=== PATIENT | female | born 1950 | race Caucasian/White ===

== ENCOUNTER 2020-06-19 08:44 | Outpatient (REF) | payer MEDICARE, SELFPAY ==
--- NOTE | 2020-06-19 09:54 | XR_ITS ---
EXAMINATION: XR CHEST CLINICAL INFORMATION: Asthma. COPD. COMPARISON: February 14, 2020 TECHNIQUE: 2 views of the chest were obtained. FINDINGS: There is no evidence of significant acute parenchyma disease, pneumothorax, or pleural effusion. Heart normal size. No evidence of pulmonary edema. Discoid atelectasis is noted about the left base. Multilevel degenerative disc disease is seen within the lower thoracic and proximal lumbar spine. XR/XR chest 2V IMPRESSION: No significant acute parenchymal disease.
== END 2020-06-19 08:45 | disposition home or self-care (01) ==
LOC: HO.XRAY 08:44
PROVIDERS: PCP Internal Medicine; Visit Provider Hospitalist
DX: J44.9 Chronic obstructive pulmonary disease, unspecified (principal)
CPT/HCPCS: 71046

== ENCOUNTER 2020-07-21 11:59 | Outpatient (REF) | payer MEDICARE, SELFPAY ==
--- NOTE | 2020-07-21 12:04 | MM_ITS ---
EXAMINATION: MM SCREENING DIGITAL BREAST TOMOSYNTHESIS, BILATERAL CLINICAL INFORMATION: Screening. Asymptomatic. The lifetime risk of breast cancer based on the Tyrer-Cuzick Model is 5%. COMPARISON: Mammography: 02/11/2019, 01/23/2018, 01/18/2017 TECHNIQUE: Digital breast tomosynthesis is performed in both the craniocaudal and mediolateral oblique views along with computer-aided detection (CAD). Synthesized 2D images are generated from the tomosynthesis. Additional left MLO view is provided. FINDINGS: There are scattered areas of fibroglandular density (ACR BI-RADS breast composition Category b). There are no significant masses, abnormal calcifications, or other abnormalities. Parenchymal pattern is similar to prior studies. MM/MM tomosynthesis screening BI IMPRESSION: No mammographic evidence of malignancy. ASSESSMENT: BI-RADS 1: Negative RECOMMENDATION: Routine annual mammography screening. This patient's information was entered into a reminder system with a target due date for their next mammogram.
== END 2020-07-21 12:00 | disposition home or self-care (01) ==
LOC: HO.MAMMO 11:59
PROVIDERS: PCP Internal Medicine; Visit Provider Internal Medicine
DX: Z12.31 Encounter for screening mammogram for malignant neoplasm of breast (principal)
CPT/HCPCS: 77063; 77067

== ENCOUNTER → 2020-08-31 08:44 | Outpatient (BNVA) | payer MEDICARE, SELFPAY | PROVIDERS: PCP Internal Medicine; Visit Provider Hospitalist | DX: J44.9 Chronic obstructive pulmonary disease, unspecified (principal); J98.11 Atelectasis; M54.9 Dorsalgia, unspecified; Z79.899 Other long term (current) drug therapy | CPT/HCPCS: 99212 ==

== ENCOUNTER 2021-03-28 10:53 | Emergency (ER) | payer MEDICARE, SELFPAY ==
--- NOTE | 2021-03-28 | ECG_ITS ---
Test Reason : CHEST PAIN Blood Pressure : / mmHG Vent. Rate : 069 BPM Atrial Rate : 069 BPM P-R Int : 176 ms QRS Dur : 086 ms QT Int : 412 ms P-R-T Axes : -15 063 031 degrees QTc Int : 441 ms Normal sinus rhythm Normal ECG When compared with ECG of 29-SEP-2007 07:44, No significant change was found Referred By: Generic ED Physician Electronically Signed By:MARKEL LUGO
--- NOTE | ~2021-03-28 | XR_ITS ---
EXAMINATION: XR CHEST CLINICAL INFORMATION: Chest pain COMPARISON: 06/19/2020 TECHNIQUE: Frontal view of the chest was obtained. FINDINGS: Lungs are well expanded and clear. No pulmonary edema, pleural effusion or pneumothorax. There is undulation, mild eventration of right diaphragm. Cardiac silhouette has normal size and contour. There is atherosclerotic calcification of the aorta. The visualized bones are intact. There is likely calcium pyrophosphate dihydrate crystal deposition at degenerated acromiohumeral joints. XR/XR chest 1V IMPRESSION: No acute disease compared to 06/19/2020.
--- NOTE | ~2021-03-28 | CT_ITS ---
EXAMINATION: CT ABDOMEN AND PELVIS WITH CONTRAST CLINICAL INFORMATION: Abdominal pain COMPARISON: None TECHNIQUE: Multidetector volumetric images were obtained from the superior aspect of the liver through the pubic symphysis following administration 85 mL of Omnipaque 350 intravenous contrast. Sagittal and coronal reformatted images were obtained on the technologist's workstation. Oral contrast: No This CT examination was performed using dose optimization techniques as appropriate, variously including the following: *Automated exposure control *Adjustment of mA and/or kV according to patient size (this includes techniques or standardized protocols for targeted exams where dose is matched to indication/reason for exam; i.e. extremities or head) *Use of iterative reconstruction technique DLP: 527 mGy-cm FINDINGS: LUNG BASES: Mild linear scarring at the lung bases. LIVER, GALLBLADDER, AND BILIARY TREE: The liver is normal in size. Mild dilatation of the intrahepatic bile ducts and extrahepatic bile ducts are seen extending to the ampulla. The gallbladder has been surgically removed. A small hypodensity is seen in the right lobe of liver measuring 0.7 cm in size (image 31, series 3) no additional hepatic abnormalities. PANCREAS: Unremarkable. SPLEEN: Unremarkable. ADRENAL GLANDS: Unremarkable. KIDNEYS AND URETERS: The right kidney has a 0.4 cm nonobstructing renal calculus with mild pelviectasis. No hydronephrosis or hydroureter. The left kidney has a tiny 0.1 cm interpolar nonobstructing renal calculus. Mild pelviectasis without hydroureter. BLADDER: The bladder is distended without abnormality seen. GASTROINTESTINAL TRACT: Mild thickening of the distal esophagus is noted. The stomach is nondilated. Mild thickening is seen of the distal antropyloric region of the stomach without adjacent soft tissue stranding or extraluminal gas. The jejunum is nondilated. The proximal ileum is laterally positioned in the left lower quadrant lateral to the sigmoid colon and posterior to the superior mesenteric vein. A subtle internal hernia is possible. There is no evidence of acute bowel obstruction. The appendix is normal. Small to moderate stool burden is seen in the colon. ABDOMINAL WALL: Small fat-containing periumbilical hernia is seen. LYMPH NODES: Normal. VASCULAR: Extensive vascular calcification is seen. No evidence of aneurysm. PELVIC VISCERA: The uterus and adnexa are unremarkable. OSSEOUS STRUCTURES: Focal sclerosis is seen in the right and left sides of the sacrum which could reflect subtle stress fractures, chronic. Evidence of anterior L5-S1 disc fusion and posterior L4-S1 fusion with L4-L5 spinous process fusion with plate and screws. Multilevel thoracolumbar spine degenerative changes are seen with anterolisthesis of L3 on L4. CT/CT abdomen pelvis w con IMPRESSION: 1. Mild thickening of the distal esophagus and the gastric antrum which is not specific but can be seen with esophagitis and gastritis. This could be evaluated with endoscopy as appropriate. 2. The proximal ileum is laterally positioned and a subtle intersigmoid mesocolon hernia would be difficult to exclude on the basis of this study. No evidence of thickened bowel loops or bowel obstruction at this time. 3. Mild dilatation of the intrahepatic bile ducts and extrahepatic bile duct. Correlate with liver enzymes. 4. Nonspecific 0.7 cm hypodensity in the right lobe of the liver, not fully characterized on this study. 5. Tiny nonobstructive renal calculi. 6. Extensive degenerative changes are seen in the lumbar spine. Probable sacral stress fractures. The gastrointestinal findings and biliary findings were discussed with Dr. Golden 03/28/2021 at 4:11 PM.
[2021-03-28 11:28] VITALS: BP 133/59; PULSE 67; RESP 18; TEMP 36.1; O2SAT 97; BMI 28.3
[2021-03-28 11:45] VITALS: BP 137/54; PULSE 67; TEMP 36.8; O2SAT 98
[2021-03-28 12:55] LABS: MANUAL DIFF FLAG NO
[2021-03-28 12:56] LABS: Basophils Absolute Auto 0.1 X10*3/uL (0.0-0.2); Basophils Percent Auto 0.5 % (0-2); Eosinophils Absolute Auto 0.1 X10*3/uL (0.0-0.4); Eosinophils Percent Auto 0.6 % (0-4); Hematocrit 36.8 % (37-47); Hemoglobin 12.6 g/dl (12.0-16.0); Imm Gran Abs Auto 0.02 X10*3/uL (0.00-0.03); Imm Gran Pct Auto 0.2 % (0.0-0.4); Lymphocytes Absolute Auto 0.7 X10*3/uL (1.2-4.9); Lymphocytes Percent Auto 7.1 % (20-40); Mean Corpuscular HGB Conc 34.2 g/dl (31.0-35.0); Mean Corpuscular Hemoglobin 33.4 pg (27.0-33.0); Mean Corpuscular Volume 97.6 fL (80-98); Mean Platelet Volume 9.6 fL (9.4-12.3); Monocytes Absolute Auto 0.8 X10*3/uL (0.1-1.2); Monocytes Percent Auto 7.6 % (2-11); Neutrophils Absolute Auto 8.3 X10*3/uL (2.0-8.3); Platelet Count 241 X10*3/uL (160-400); Red Blood Count 3.77 X10*6/uL (4.20-5.50); Red Cell Distribution Width 12.5 % (11.0-16.0); White Blood Count 9.8 X10*3/uL (4.8-10.8)
[2021-03-28 13:22] LABS: Anion Gap 14 (12-20); Blood Urea Nitrogen 19 mg/dL (9-16); Calcium 9.2 mg/dL (8.4-10.2); Carbon Dioxide 27 mmol/L (22-29); Chloride 104 mmol/L (96-108); Creatinine Clr Calc Pharmacy 67.7; Estimated Glomerular Filt Rate > 60; Glucose Random 100 mg/dL (60-115); Potassium 3.7 mmol/L (3.3-5.1); Sodium 141 mmol/L (135-145)
--- NOTE | 2021-03-28 13:46 | ED_ITS ---
HPI - General Adult General Chief complaint: General Medical Stated complaint: chest pain Time Seen by Provider: 03/28/21 13:18 Source: patient Mode of arrival: ambulatory Limitations: no limitations History of Present Illness HPI narrative: 71-year-old female presents emergency department with multiple complaints. Patient has chronic back pain she states then she tried to get a bed this morning she was unable to get out due to her acute on chronic back pain she was assisted by her brother she states that since then she has been having some acid reflux she did vomit once and she was concerned that she is having more issues with her back she denies fevers or chills she is currently taking tramadol for her back pain she has had multiple back operations. Patient denies any falls she has no back pain red flags no recent weight loss the last surgery was over a year ago she has no fevers no numbness no tingling no loss of bowel or bladder function she can still feel and she needs to urinate that she can al ways get there in time due to pain. Related Data Home Medications Medication Instructions Recorded Confirmed atorvastatin 20 mg tablet 20 mg PO DAILY 08/31/20 08/31/20 coenzyme Q10 50 mg capsule 50 mg PO DAILY 08/31/20 08/31/20 denosumab 60 mg/mL subcutaneous 60 mg SUBCUT 08/31/20 08/31/20 syringe docusate sodium 100 mg capsule 100 mg PO DAILY 08/31/20 08/31/20 (Colace) erythromycin 500 mg tablet 500 mg PO BID 08/31/20 08/31/20 flaxseed oil 1,000 mg capsule 1,000 mg PO DAILY 08/31/20 08/31/20 flu vacc 2020-(65yr ml IM 08/31/20 08/31/20 up)-MF59C(PF) 60 mcg(15 mcgx4)/0.5 mL IM syringe fluoxetine 20 mg capsule 20 mg PO DAILY 08/31/20 08/31/20 gabapentin 600 mg tablet mg PO 08/31/20 08/31/20 galcanezumab-gnlm 120 mg/mL 240 mg SUBCUT ONCE 08/31/20 08/31/20 subcutaneous pen injector hydrochlorothiazide 25 mg tablet 25 mg PO DAILY 08/31/20 08/31/20 meloxicam 15 mg tablet 15 mg PO DAILY 08/31/20 08/31/20 multivit,Ca,iron,bxo-WO-lnsjyff-uczcyjq-senh-ZPUL cap PO 08/31/20 08/31/20 3 mg-133 mcg capsule (Body, Hair, Skin and Nails) multivitamin 1 tab PO DAILY 08/31/20 08/31/20 omeprazole 40 mg capsule,delayed mg PO 08/31/20 08/31/20 release sumatriptan succinate 50 mg tablet mg PO 08/31/20 08/31/20 Previous Rx's Medication Instructions Recorded fluticasone propionate 230 2 puff INHALATION Q12H 30 Days #12 08/31/20 mcg-salmeterol 21 mcg/actuation g HFA inhaler Allergies Allergy/AdvReac Type Severity Reaction Status Date / Time adhesive tape [TAPE,ADHESIVE] Allergy Severe RASH Verified 08/31/20 08:53 cefazolin Allergy Mild RASH Verified 08/31/20 08:53 cephalexin [Keflex] Allergy Mild Rash Verified 08/31/20 08:53 clindamycin Allergy Mild RASH Verified 08/31/20 08:53 Penicillins Allergy Mild RASH Verified 08/31/20 08:53 Review of Systems Review of Systems: Review of systems: General: Patient denies any fever chills recent illness or falls Musculoskeletal: back pain Denies or body aches or other injuries HEENT: denies headache, runny nose, ear pain Respiratory: denies shortness of breath, cough Cardiovascular: no chest pain or palpitations : denies dysuria, frequency Abdomen: nausea vomiting abdominal pain Extremities: no swelling, no pain Skin: no diaphoresis Yes all other systems are reviewed and are negative PMFSH Past Medical History Medical History (Updated 03/28/21 @ 15:52 by Alessio Wilburn DO) Atelectasis Back pain COPD (chronic obstructive pulmonary disease) Social History Social History (Updated 08/31/20 @ 08:55 by Olga Rollins MA) Alcohol intake: never Patient Tobacco Use Status: Never used Tobacco Use of substances other than those prescribed or required for medical reasons: No Advance Directives: No Advance Directives Information Provided: No Physical Exam 2 Vital Signs: Vital Signs: Last Vital Signs Temp 98.2 F 03/28/21 11:45 Pulse 73 03/28/21 15:40 Resp 16 03/28/21 15:40 BP 117/63 03/28/21 15:40 Pulse Ox 98 03/28/21 15:40 Body Mass Index 28.3 General: Well-appearing well-nourished in no signs of distress HEENT: Normocephalic atraumatic Neck: No signs of JVD, no masses no tenderness or lymphadenopathy Cardiovascular: Regular rate and rhythm Respiratory: Clear to auscultation bilaterally Abdomen: Soft nontender no masses Extremities: Normal pedal pulses no signs of edema Skin: Dry warm no rashes Back: No tenderness full ROM negative straight leg test normal reflexes bilateral lower extremities Medical Decision Making [facility] Narrative Medical decision making narrative: 71 year old female with acute on chronic b ack pain abdominal pain she vomited she states she had a little blood in her vomit I will give patient Zofran morphine and fluids will check belly labs troponin get an x-ray and a CT scan. Patient has multiple planes lab work is completely unremarkable patient is still pending CT scan. I will sign out. Lab Data Result diagrams: 03/28/21 12:49 03/28/21 12:49 Labs: Lab Results 03/28/21 03/28/21 03/28/21 Range/Units 12:49 12:49 12:49 WBC 9.8 (4.8-10.8) X10*3/uL RBC 3.77 L (4.20-5.50) X10*6/uL Hgb 12.6 (12.0-16.0) g/dl Hct 36.8 L (37-47) % MCV 97.6 (80-98) fL MCH 33.4 H (27.0-33.0) pg MCHC 34.2 (31.0-35.0) g/dl RDW 12.5 (11.0-16.0) % Plt Count 241 (160-400) X10*3/uL MPV 9.6 (9.4-12.3) fL Immature Gran % (Auto) 0.2 (0.0-0.4) % Neut % (Auto) 84.0 H (45-73) % Lymph % (Auto) 7.1 L (20-40) % Alexander % (Auto) 7.6 (2-11) % Eos % (Auto) 0.6 (0-4) % Baso % (Auto) 0.5 (0-2) % Lymph # (Auto) 0.7 L (1.2-4.9) X10*3/uL Alexander # (Auto) 0.8 (0.1-1.2) X10*3/uL Eos # (Auto) 0.1 (0.0-0.4) X10*3/uL Baso # (Auto) 0.1 (0.0-0.2) X10*3/uL Abs Immat Gran (auto) 0.02 (0.00-0.03) X10*3/uL Absolute Neuts (auto) 8.3 (2.0-8.3) X10*3/uL Absolute Nucleated RBC 0.000 (0.0-0.012) X10*3/uL Nucleated RBC % (auto) 0.0 (0.0-0.2) /100WBC Sodium 141 (135-145) mmol/L Potassium 3.7 (3.3-5.1) mmol/L Chloride 104 (96-108) mmol/L Carbon Dioxide 27 (22-29) mmol/L Anion Gap 14 (12-20) BUN 19 H (9-16) mg/dL Creatinine 0.69 (0.5-1.4) mg/dL Estim Creat Clear Calc 67.7 Estimated GFR > 60 Random Glucose 100 (60-115) mg/dL Calcium 9.2 (8.4-10.2) mg/dL Total Bilirubin 0.5 (0.0-1.0) mg/dL Direct Bilirubin 0.2 (0.0-0.5) mg/dL AST 23 (5-31) U/L ALT 20 (0-31) U/L Alkaline Phosphatase 54 (39-117) U/L Troponin I High Sens 4.0 (<3.5-17.0) ng/L Total Protein 6.4 L (6.5-8.0) g/dL Albumin 4.2 (3.5-5.0) g/dL Lipase 31 (8-78) U/L Discharge Plan Discharge Clinical Impression: Back pain, Abdominal pain Instructions: Acute Low Back Pain (ED), Abdominal Pain (ED) Additional Instructions: Please call follow-up with her doctor if you have any other concerns please do not hesitate to come back to emergency department. Prescriptions: No Action erythromycin 500 mg tablet 500 mg PO BID RF: 0 Emgality Pen 120 mg/mL pen injector 240 mg subcut ONCE RF: 0 hydrochlorothiazide 25 mg tablet 25 mg PO DAILY RF: 0 fluoxetine 20 mg capsule 20 mg PO DAILY RF: 0 sumatriptan succinate 50 mg tablet PO RF: 0 meloxicam 15 mg tablet 15 mg PO DAILY RF: 0 atorvastatin 20 mg tablet 20 mg PO DAILY RF: 0 gabapentin 600 mg tablet PO RF: 0 Fluad Quad 2020-(65y up)(PF) 60 mcg (15 mcg x 4)/0.5 mL syringe IM RF: 0 omeprazole 40 mg capsule,delayed release(DR/EC) PO RF: 0 Prolia 60 mg/mL syringe 60 mg subcut RF: 0 flaxseed oil 1,000 mg capsule 1,000 mg PO DAILY RF: 0 multivitamin Tablet 1 tab PO DAILY RF: 0 docusate sodium [Colace] 100 mg capsule 100 mg PO DAILY RF: 0 coenzyme Q10 50 mg capsule 50 mg PO DAILY RF: 0 Body, Hair, Skin and Nails 3-133 mg-mcg capsule PO RF: 0 fluticasone propion-salmeterol 230-21 mcg/actuation HFA aerosol inhaler 2 puff inhalation Q12H 30 Days Qty: 12 RF: 6
[2021-03-28 14:09] LABS: Alanine Aminotransferase 20 U/L (0-31); Albumin Level 4.2 g/dL (3.5-5.0); Alkaline Phosphatase 54 U/L (39-117); Aspartate Amino Transferase 23 U/L (5-31); Bilirubin Direct 0.2 mg/dL (0.0-0.5); Bilirubin Total 0.5 mg/dL (0.0-1.0); Lipase 31 U/L (8-78); Total Protein 6.4 g/dL (6.5-8.0)
[2021-03-28] MEDS: Morphine Sulfate 4 MG/ML CARTRIDGE IVPUSH (14:09)
[2021-03-28] MEDS: Lactated Ringers 1,000 ML 999 ML IV (14:09)
[2021-03-28 14:10] VITALS: BP 128/55; PULSE 67; RESP 16; O2SAT 97
[2021-03-28] MEDS: iohexoL 350 MG/ML 100 ML INFUS..BTL IV (15:14)
--- NOTE | 2021-03-28 15:38 | PC.NURSE ---
Pt reports 6/10 chest pain that has improved sl. Pt states at times cp is accompanied by heart skipping a beat While in room pt noted to have occasional PACS on tele, Dr Wilburn updated.
[2021-03-28 15:40] VITALS: BP 117/63; PULSE 73; RESP 16; O2SAT 98
== END 2021-03-28 17:14 | disposition home or self-care (01) ==
PROVIDERS: Student in an Organized Health Care Education/Training Program; Emergency Provider Emergency Medicine Emergency Medical Services; PCP Internal Medicine
DX: M54.5 Low back pain (principal); R10.9 Unspecified abdominal pain; R07.9 Chest pain, unspecified; Z79.899 Other long term (current) drug therapy
CPT/HCPCS: 36415; 71045; 74177; 80048; 80076; 83690; 84484; 85025; 93005; 96365; 96375; 99284; J2270; J2405; Q9967

== ENCOUNTER 2021-07-20 09:06 | Outpatient (REF) | payer MEDICARE, SELFPAY ==
[2021-07-20 10:19] LABS: Alanine Aminotransferase 17 U/L (0-31); Albumin Level 4.4 g/dL (3.5-5.0); Alkaline Phosphatase 72 U/L (39-117); Anion Gap 13 (12-20); Aspartate Amino Transferase 21 U/L (5-31); Bilirubin Total 0.4 mg/dL (0.0-1.0); Blood Urea Nitrogen 16 mg/dL (9-16); Calcium 10.2 mg/dL (8.4-10.2); Carbon Dioxide 28 mmol/L (22-29); Chloride 106 mmol/L (96-108); Cholesterol 168 mg/dL; Estimated Glomerular Filt Rate > 60; Glucose Random 99 mg/dL (60-115); HDL Cholesterol 63 mg/dL; LDL Cholesterol Calculated 87 mg/dl; Potassium 4.3 mmol/L (3.3-5.1); Sodium 143 mmol/L (135-145); Total Protein 6.7 g/dL (6.5-8.0); Triglycerides 91 mg/dL
[2021-07-20 10:38] LABS: Thyroid Stimulating Hormone 2.24 uIU/mL (0.32-4.0)
[2021-07-20 10:47] LABS: Estimated Average Glucose 94 mg/dL; Hemoglobin A1c % 4.9 %
== END 2021-07-20 09:07 | disposition home or self-care (01) ==
LOC: HO.LAB 09:06
PROVIDERS: PCP Internal Medicine; Visit Provider Internal Medicine
DX: E78.00 Pure hypercholesterolemia, unspecified (principal); R73.01 Impaired fasting glucose
CPT/HCPCS: 36415; 80053; 80061; 83036; 84443

== ENCOUNTER 2021-07-27 08:33 | Outpatient (REF) | payer MEDICARE, SELFPAY ==
[2021-07-27 08:45] LABS: MANUAL DIFF FLAG NO
[2021-07-27 09:21] LABS: Basophils Absolute Auto 0.1 X10*3/uL (0.0-0.2); Basophils Percent Auto 0.8 % (0-2); Eosinophils Absolute Auto 0.2 X10*3/uL (0.0-0.4); Eosinophils Percent Auto 2.9 % (0-4); Hematocrit 38.8 % (37.0-47.0); Hemoglobin 12.7 g/dl (12.0-16.0); Imm Gran Abs Auto 0.02 X10*3/uL (0.00-0.03); Imm Gran Pct Auto 0.3 % (0.0-0.4); Lymphocytes Percent Auto 14.7 % (20-40); Mean Corpuscular HGB Conc 32.7 g/dl (31.0-35.0); Mean Corpuscular Hemoglobin 32.5 pg (27.0-33.0); Mean Corpuscular Volume 99.2 fL (80.0-98.0); Mean Platelet Volume 9.6 fL (9.4-12.3); Monocytes Absolute Auto 0.5 X10*3/uL (0.1-1.2); Monocytes Percent Auto 7.1 % (2-11); Neutrophils Absolute Auto 4.8 x10*3/uL (2.0-8.3); Neutrophils Percent Auto 74.2 % (45-73); Platelet Count 280 X10*3/uL (160-400); Red Blood Count 3.91 X10*6/uL (4.20-5.50); Red Cell Distribution Width 13.6 % (11.0-16.0); White Blood Count 6.5 X10*3/uL (4.8-10.8)
== END 2021-07-27 08:34 | disposition home or self-care (01) ==
LOC: HO.LAB 08:33
PROVIDERS: Visit Provider Internal Medicine
DX: I25.10 Atherosclerotic heart disease of native coronary artery without angina pectoris (principal); I10 Essential (primary) hypertension
CPT/HCPCS: 36415; 85025

== ENCOUNTER 2021-07-28 12:22 | Outpatient (REF) | payer MEDICARE, SELFPAY ==
--- NOTE | ~2021-07-28 | MM_ITS ---
EXAMINATION: MM SCREENING DIGITAL BREAST TOMOSYNTHESIS, BILATERAL CLINICAL INFORMATION: Screening. Asymptomatic. The lifetime risk of breast cancer based on the Tyrer-Cuzick Model is 5%. COMPARISON: Mammography: 07/21/2020, 02/11/2019, 01/23/2018 TECHNIQUE: Digital breast tomosynthesis is performed in both the craniocaudal and mediolateral oblique views along with computer-aided detection (CAD). Synthesized 2D images are generated from the tomosynthesis. Additional left MLO and exaggerated left CC views are provided. FINDINGS: There are scattered areas of fibroglandular density (ACR BI-RADS breast composition Category b). There are no significant masses, abnormal calcifications, or other abnormalities. Parenchymal pattern is similar to prior studies. No developing density. The skin contours are smooth. There are no significant changes from prior exams. MM/MM tomosynthesis screening BI IMPRESSION: No mammographic evidence of malignancy. ASSESSMENT: BI-RADS 1: Negative RECOMMENDATION: Routine annual mammography screening. This patient's information was entered into a reminder system with a target due date for their next mammogram.
== END 2021-07-28 12:23 | disposition home or self-care (01) ==
LOC: HO.MAMMO 12:22
PROVIDERS: Visit Provider Internal Medicine
DX: Z12.31 Encounter for screening mammogram for malignant neoplasm of breast (principal)
CPT/HCPCS: 77063; 77067

== ENCOUNTER 2021-07-30 12:50 | Outpatient (REF) | payer MEDICARE, SELFPAY ==
--- NOTE | 2021-07-30 17:10 | PFT_ITS ---
Forced vital capacity and FEV1 are both slightly increased. YVC81-20 and MVV are normal. Post bronchodilator therapy, there is no significant change. Total lung capacity and residual volume normal. Diffusion capacity, slightly decreased. CONCLUSION: Normal pulmonary function test. No evidence of obstructive or restrictive pulmonary disorder. No response to bronchodilator therapy. Mild decrease in diffusion capacity is nonspecific. For this, clinical correlation is recommended. MD XIOMARA Tao/MODL / [id number]
== END 2021-07-30 12:51 | disposition home or self-care (01) ==
LOC: HO.RESP 12:50
PROVIDERS: PCP Internal Medicine; Visit Provider Hospitalist
DX: J44.9 Chronic obstructive pulmonary disease, unspecified (principal)
CPT/HCPCS: 94060; 94727; 94729

== ENCOUNTER → 2021-08-06 11:01 | Outpatient (BNVA) | payer MEDICARE, SELFPAY | PROVIDERS: PCP Internal Medicine; Visit Provider Hospitalist | DX: J45.909 Unspecified asthma, uncomplicated (principal); J98.11 Atelectasis | CPT/HCPCS: 99212 ==

== ENCOUNTER 2021-10-06 10:37 | Outpatient (REF) | payer MEDICARE, SELFPAY ==
--- NOTE | ~2021-10-06 | XR_ITS ---
EXAMINATION: XR PELVIS AND LUMBAR SPINE CLINICAL INFORMATION: Pain COMPARISON: None TECHNIQUE: AP view of the pelvis. 5 views of the lumbar spine including bilateral oblique views FINDINGS: PELVIS: Bone alignment is normal. No fracture or dislocation is seen. Joint spaces are normal. There is proliferative bone reaction adjacent to the bilateral iliac crests. Soft tissues are otherwise unremarkable. LUMBAR SPINE: There is curvature of the lower thoracic and upper lumbar spine to the left and mid lumbar spine to the right. There is a 4 mm anterior subluxation of L3 with respect to L4 and L4 with respect to L5. There are postsurgical changes of the lower spine. There is evidence of previous disc surgery at L4-L5 and L5-S1. There is a disc cage at L5-S1. There is posterior fusion hardware with rods and interpedicular screws at L4 and S1. Orthopedic hardware appears intact. No fracture or dislocation is seen. There is evidence of multilevel degenerative disc disease of the lower thoracic and lumbar spine. There is evidence of atherosclerotic disease. XR/XR pelvis 1-2V IMPRESSION: PELVIS: Proliferative bone reaction adjacent to the bilateral iliac crests, otherwise unremarkable exam. LUMBAR SPINE: Postsurgical change to the lower lumbar spine. Multilevel degenerative disc disease. Scoliosis. Mild anterior subluxation of L3 with respect to L4 and L4 with respect to L5.
--- NOTE | ~2021-10-06 | XR_ITS ---
EXAMINATION: XR PELVIS AND LUMBAR SPINE CLINICAL INFORMATION: Pain COMPARISON: None TECHNIQUE: AP view of the pelvis. 5 views of the lumbar spine including bilateral oblique views FINDINGS: PELVIS: Bone alignment is normal. No fracture or dislocation is seen. Joint spaces are normal. There is proliferative bone reaction adjacent to the bilateral iliac crests. Soft tissues are otherwise unremarkable. LUMBAR SPINE: There is curvature of the lower thoracic and upper lumbar spine to the left and mid lumbar spine to the right. There is a 4 mm anterior subluxation of L3 with respect to L4 and L4 with respect to L5. There are postsurgical changes of the lower spine. There is evidence of previous disc surgery at L4-L5 and L5-S1. There is a disc cage at L5-S1. There is posterior fusion hardware with rods and interpedicular screws at L4 and S1. Orthopedic hardware appears intact. No fracture or dislocation is seen. There is evidence of multilevel degenerative disc disease of the lower thoracic and lumbar spine. There is evidence of atherosclerotic disease. XR/XR lumbar spine 4V min IMPRESSION: PELVIS: Proliferative bone reaction adjacent to the bilateral iliac crests, otherwise unremarkable exam. LUMBAR SPINE: Postsurgical change to the lower lumbar spine. Multilevel degenerative disc disease. Scoliosis. Mild anterior subluxation of L3 with respect to L4 and L4 with respect to L5.
== END 2021-10-06 10:38 | disposition home or self-care (01) ==
LOC: HO.XRAY 10:37
PROVIDERS: PCP Internal Medicine; Visit Provider Physical Medicine & Rehabilitation
DX: M48.4 Fatigue fracture of vertebra (principal)
CPT/HCPCS: 72110; 72170

== ENCOUNTER 2021-10-25 10:03 | Outpatient (REF) | payer MEDICARE, SELFPAY ==
[2021-10-25 11:22] LABS: MANUAL DIFF FLAG NO
[2021-10-25 11:25] LABS: Appearance Urine CLEAR; Color Urine YELLOW; Glucose Urine UA NEG (NEG); Leukocyte Esterase Urine NEG (NEG); Nitrite Urine NEG (NEG); Specific Gravity - Urine <= 1.005 (1.005-1.025); Urine Blood NEG (NEG); Urine Ketones NEG (NEG); Urine Protein NEG (NEG-TRACE)
[2021-10-25 11:36] LABS: Basophils Percent Auto 0.8 % (0-2); Eosinophils Absolute Auto 0.1 X10*3/uL (0.0-0.4); Eosinophils Percent Auto 2.9 % (0-4); Hematocrit 40.4 % (37.0-47.0); Hemoglobin 13.5 g/dl (12.0-16.0); Imm Gran Abs Auto 0.02 X10*3/uL (0.00-0.03); Imm Gran Pct Auto 0.4 % (0.0-0.4); Lymphocytes Absolute Auto 0.9 X10*3/uL (1.2-4.9); Lymphocytes Percent Auto 17.6 % (20-40); Mean Corpuscular HGB Conc 33.4 g/dl (31.0-35.0); Mean Corpuscular Hemoglobin 33.5 pg (27.0-33.0); Mean Corpuscular Volume 100.2 fL (80.0-98.0); Mean Platelet Volume 9.7 fL (9.4-12.3); Monocytes Absolute Auto 0.5 X10*3/uL (0.1-1.2); Monocytes Percent Auto 9.2 % (2-11); Neutrophils Absolute Auto 3.4 x10*3/uL (2.0-8.3); Neutrophils Percent Auto 69.1 % (45-73); Platelet Count 305 X10*3/uL (160-400); Red Blood Count 4.03 X10*6/uL (4.20-5.50); Red Cell Distribution Width 13.3 % (11.0-16.0); White Blood Count 4.9 X10*3/uL (4.8-10.8)
[2021-10-25 11:45] LABS: Estimated Average Glucose 97 mg/dL
[2021-10-25 12:19] LABS: Free T4 (Free Thyroxine) 0.93 ng/dL (0.71-1.85); Thyroid Stimulating Hormone 1.47 uIU/mL (0.32-4.0)
[2021-10-25 12:29] LABS: Alanine Aminotransferase 16 U/L (0-31); Albumin Level 4.3 g/dL (3.5-5.0); Alkaline Phosphatase 66 U/L (39-117); Anion Gap 13 (12-20); Aspartate Amino Transferase 19 U/L (5-31); Bilirubin Total 0.7 mg/dL (0.0-1.0); Blood Urea Nitrogen 17 mg/dL (9-16); Calcium 9.4 mg/dL (8.4-10.2); Carbon Dioxide 29 mmol/L (22-29); Chloride 106 mmol/L (96-108); Cholesterol 154 mg/dL; Estimated Glomerular Filt Rate > 60; Glucose Random 98 mg/dL (60-115); HDL Cholesterol 63 mg/dL; LDL Cholesterol Calculated 79 mg/dl; Lipase 48 U/L (8-78); Potassium 4.6 mmol/L (3.3-5.1); Sodium 143 mmol/L (135-145); Total Protein 6.7 g/dL (6.5-8.0); Triglycerides 64 mg/dL
== END 2021-10-25 10:04 | disposition home or self-care (01) ==
LOC: HO.HMGCLDS 10:03
PROVIDERS: Visit Provider Internal Medicine
DX: I10 Essential (primary) hypertension (principal); R73.01 Impaired fasting glucose; R10.10 Upper abdominal pain, unspecified; E78.00 Pure hypercholesterolemia, unspecified
CPT/HCPCS: 36415; 80053; 80061; 81003; 83036; 83690; 84439; 84443; 85025

== ENCOUNTER 2022-02-11 08:39 | Outpatient (REF) | payer MEDICARE, SELFPAY ==
--- NOTE | ~2022-02-11 | MM_ITS ---
EXAMINATION: BONE DENSITOMETRY CLINICAL INDICATION: Osteoporosis. COMPARISON: Previous BD dated 01/02/2018, spine and left hip; 11/22/2013, left forearm and baseline BD dated 06/26/2008, spine and left hip; 09/20/2011, left forearm. TECHNIQUE: Using a [employer]18 DXA System (software version: 13.1) manufactured by [employer], dual-energy x-ray absorptiometry was performed of the lumbar spine, left hip, and left forearm radius 33%. The images are of good technical quality. Summary results are attached. FINDINGS: AP SPINE L1-L2 (excluding L3 and L4): The data of L1-L4 has been changed to exclude the L3 and L4 vertebral bodies, because hardware at these levels may cause overestimation of lumbar spine density. Current: BMD 1.718 g/cm2, Z-score 6.3, T-score 4.6, normal, 6.5% increase from previous, 49.9% increase from baseline (<5% change is not significant). Prior: BMD 1.613 g/cm2. Baseline: BMD 1.146 g/cm2. LEFT FEMUR, NECK: Current: BMD 0.803 g/cm2, Z-score 0.1, T-score -1.7, osteopenia. Prior: BMD 0.768 g/cm2. Baseline: BMD 0.844 g/cm2. LEFT FEMUR, TOTAL: Current: BMD 0.851 g/cm2, Z-score 0.4, T-score -1.2, osteopenia, 5.3% increase from previous, 8.4% decrease from baseline (<5% change is not significant). Prior: BMD 0.808 g/cm2. Baseline: BMD 0.929 g/cm2. LEFT FOREARM RADIUS 33%: BMD 0.744 g/cm2, Z-score 0.6, T-score -1.5, osteopenia, 6.8% decrease from previous, 15.8% decrease from baseline (<5% change is not significant). Prior 11/22/2013: BMD 0.798 g/cm2. Baseline 09/20/2011: BMD 0.884 g/cm2. IDENTIFIED RISK FACTORS: Osteoporosis, height loss, history of fracture (adult), menopause, glucocorticoids (chronic). HISTORY OF FRACTURE: Pelvis. MEDICATIONS: Calcium supplements or multivitamin, vitamin D, Prolia. MM/XR DEXA axial skeleton IMPRESSION: 1. DIAGNOSIS: Osteopenia based on the lowest T-score value of -1.7 in the femoral neck applying World Health Organization criteria. 2. 10-YEAR FRACTURE RISK PREDICTION, FRAX: Major osteoporotic fracture (clinical spine, forearm, hip or shoulder) 26.9%. Hip fracture 5.9%. 3. Treatment Recommendations: NOF guidelines recommend consideration for treatment in postmenopausal women and men age 50 and older presenting with the following: -A hip or vertebral (clinical or morphometric) fracture. -T-score less than or equal to -2.5 at the femoral neck or spine after appropriate evaluation to exclude secondary causes. -Low bone mass at the hip or spine and a 10-year fracture probability by FRAX of greater than or equal to 3% for hip fracture or greater than or equal to 20% for major osteoporotic fracture based on the [place] adapted WHO algorithm. 4. Other Recommendations: All treatment decisions require clinical judgment and consideration of individual patient factors, including patient preferences, comorbidities, previous drug use, risk factors not captured in the FRAX model (e.g. frailty, falls, vitamin D deficiency, increased bone turnover, interval significant decline in bone density) and possible under or overestimation of fracture risk by FRAX. Additional medical evaluation for secondary cause of low bone mineral density may be appropriate. FUTURE SCAN RECOMMENDATION: People with diagnosed cases of osteoporosis or at high risk for fracture should have regular bone mineral density tests. For patients eligible for Medicare, routine testing is allowed once every 2 years. The testing frequency can be increased to one year for patients who have rapidly progressing disease, those who are receiving or discontinuing medical therapy to restore bone mass, or have additional risk factors.
== END 2022-02-11 08:40 | disposition home or self-care (01) ==
LOC: HO.MAMMO 08:39
PROVIDERS: Visit Provider Internal Medicine
DX: Z13.820 Encounter for screening for osteoporosis (principal); M81.0 Age-related osteoporosis without current pathological fracture; Z78.0 Asymptomatic menopausal state
CPT/HCPCS: 77080

== ENCOUNTER 2022-08-25 12:39 | Outpatient (REF) | payer MEDICARE, SELFPAY ==
--- NOTE | ~2022-08-25 | MM_ITS ---
EXAMINATION: MM SCREENING DIGITAL BREAST TOMOSYNTHESIS, BILATERAL CLINICAL INFORMATION: Screening. Asymptomatic. The lifetime risk of breast cancer based on the Tyrer-Cuzick Model is 5.0%. COMPARISON: Mammography: July 28, 2021 and studies dating back to December 29, 2015 TECHNIQUE: Digital breast tomosynthesis is performed in both the craniocaudal and mediolateral oblique views along with computer-aided detection (CAD). Synthesized 2D images are generated from the tomosynthesis. FINDINGS: There are scattered areas of fibroglandular density (ACR BI-RADS breast composition Category b). There are no significant masses, abnormal calcifications, or other abnormalities. MM/MM tomosynthesis screening BI IMPRESSION: No significant changes ASSESSMENT: BI-RADS 1: Negative RECOMMENDATION: Routine annual mammography screening. This patient's information was entered into a reminder system with a target due date for their next mammogram.
== END 2022-08-25 12:40 | disposition home or self-care (01) ==
LOC: HO.MAMMO 12:39
PROVIDERS: Visit Provider Internal Medicine
DX: Z12.31 Encounter for screening mammogram for malignant neoplasm of breast (principal)
CPT/HCPCS: 77063; 77067

== ENCOUNTER 2022-09-29 09:42 | Outpatient (REF) | payer MEDICARE, SELFPAY ==
[2022-09-29 11:23] LABS: MANUAL DIFF FLAG NO
[2022-09-29 11:39] LABS: Basophils Absolute Auto 0.1 X10*3/uL (0.0-0.2); Basophils Percent Auto 1.3 % (0-2); Eosinophils Absolute Auto 0.1 X10*3/uL (0.0-0.4); Eosinophils Percent Auto 2.2 % (0-4); Hematocrit 39.9 % (37.0-47.0); Hemoglobin 13.4 g/dl (12.0-16.0); Imm Gran Abs Auto 0.01 X10*3/uL (0.00-0.03); Imm Gran Pct Auto 0.2 % (0.0-0.4); Lymphocytes Absolute Auto 0.9 X10*3/uL (1.2-4.9); Lymphocytes Percent Auto 16.7 % (20-40); Mean Corpuscular HGB Conc 33.6 g/dl (31.0-35.0); Mean Corpuscular Hemoglobin 33.6 pg (27.0-33.0); Mean Platelet Volume 10.1 fL (9.4-12.3); Monocytes Absolute Auto 0.4 X10*3/uL (0.1-1.2); Monocytes Percent Auto 6.7 % (2-11); Neutrophils Absolute Auto 3.9 x10*3/uL (2.0-8.3); Neutrophils Percent Auto 72.9 % (45-73); Platelet Count 291 X10*3/uL (160-400); Red Blood Count 3.99 X10*6/uL (4.20-5.50); Red Cell Distribution Width 13.4 % (11.0-16.0); White Blood Count 5.4 X10*3/uL (4.8-10.8)
[2022-09-29 12:08] LABS: Alanine Aminotransferase 15 U/L (0-31); Albumin Level 4.4 g/dL (3.5-5.0); Alkaline Phosphatase 63 U/L (39-117); Anion Gap 14 (12-20); Aspartate Amino Transferase 19 U/L (5-31); Bilirubin Total 0.7 mg/dL (0.0-1.0); Blood Urea Nitrogen 21 mg/dL (9-16); Calcium 9.5 mg/dL (8.4-10.2); Carbon Dioxide 27 mmol/L (22-29); Chloride 106 mmol/L (96-108); Cholesterol 160 mg/dL; Estimated Glomerular Filt Rate > 60; Glucose Random 101 mg/dL (60-115); HDL Cholesterol 70 mg/dL; LDL Cholesterol Calculated 81 mg/dl; Potassium 4.7 mmol/L (3.3-5.1); Sodium 142 mmol/L (135-145); Total Protein 6.7 g/dL (6.5-8.0); Triglycerides 48 mg/dL
[2022-09-29 12:09] LABS: Estimated Average Glucose 97 mg/dL; Hemoglobin A1C 152.5255 umol/L
== END 2022-09-29 09:43 | disposition home or self-care (01) ==
LOC: HO.HMGCLDS 09:42
PROVIDERS: PCP Internal Medicine; Visit Provider Internal Medicine
DX: E78.00 Pure hypercholesterolemia, unspecified (principal); R73.01 Impaired fasting glucose; K21.9 Gastro-esophageal reflux disease without esophagitis; E78.2 Mixed hyperlipidemia; Z95.1 Presence of aortocoronary bypass graft
CPT/HCPCS: 36415; 80053; 80061; 83036; 84443; 85025

== ENCOUNTER 2023-08-31 12:00 | Outpatient (REF) | payer MEDICARE, SELFPAY | END 2023-08-31 12:01 | disposition home or self-care (01) | LOC: HO.MAMMO 12:00 | PROVIDERS: PCP Internal Medicine; Visit Provider Internal Medicine | DX: Z12.31 Encounter for screening mammogram for malignant neoplasm of breast (principal) | CPT/HCPCS: 77063; 77067 ==

== ENCOUNTER → 2023-08-31 12:15 | Outpatient (BNV) | payer MEDICARE, SELFPAY | PROVIDERS: PCP Internal Medicine; Visit Provider Radiology Diagnostic Radiology | DX: Z12.31 Encounter for screening mammogram for malignant neoplasm of breast (principal) | CPT/HCPCS: 77063; 77067 ==

== ENCOUNTER 2023-11-22 08:21 | Outpatient (AMB) | payer MEDICARE, SELFPAY ==
--- NOTE | 2023-11-22 08:44 | MHC.OFFVIS ---
Intake Vital Signs 11/22/23 08:48 Height 5 ft 1 in Weight 135 lb BMI 25.5 BP 128/60 Blood Pressure Location Lt brachial Position Sitting Pulse 72 Pulse Source Pulse Oximeter Pulse Oximetry (%) 96 Oxygen Delivery Method Room Air Intake Visit Reasons: CPAP Renewal Skiver Blockers Required: No Allergies adhesive tape [TAPE,ADHESIVE] Allergy (Severe, Verified 11/22/23 08:45) RASH cefazolin Allergy (Mild, Verified 11/22/23 08:45) RASH cephalexin [Keflex] Allergy (Mild, Verified 11/22/23 08:45) Rash clindamycin Allergy (Mild, Verified 11/22/23 08:45) RASH HPI HPI Comments History of Present Illness Details The patient is a 73-year-old woman known history of asthma COPD overlap syndrome. Overall she is doing well from a respiratory status. She continues her inhalers which she tolerated very well. The only problem is that she tends to hit the donut hole close to this time a year. Therefore she is always wondering if there is something else she can take that is less expensive. She has not had to use any prednisone. Over the summer she did have a course of cold and she did use her rescue inhaler more often which helped the time. But, now she is back to her baseline. She also had an x-ray back at [facility] last year. I do not have the results of this time. 08/31/2020 the patient is here for pulmonary follow-up visit. Overall she is doing well from a respiratory status. She continues to use her Advair HFA with good results. She denies any significant coughing or wheezing. However, she has noticed increasing cough on a surgeon. Mild in severity. Juan Jose because she has significant back pain making it hard for her to walk regularly. We did look at her last x-ray from May demonstrating some discoid atelectasis at the left base. She is going to follow-up with her surgeon regarding her significant back pain after she had her surgery done back in February 2020. At this time the patient will plan to come back in the fall of 2020 will do an x-ray and also pulmonary function studies. 08/06/2021 the patient is here for a pulmonary follow-up visit. Overall the patient has been doing well from a respiratory status. In the summertime she was complaining of increasing GI discomfort in addition to epigastric discomfort. The patient was evaluated by Cardiology. She did undergo a cardiac stress test which was abnormal. Therefore she had a cardiac catheterization. The patient was found to have coronary artery disease and was admitted to the hospital and underwent a quadruple cardiac bypass surgery. The patient tolerated the surgery very well. She did require transfusion after worse. She was able to go home. The patient has been feeling very well now denies any shortness of breath or any chest discomfort. She actually continues use the Advair. She did undergo pulmonary function studies which were personally viewed by me. It appears that she has no obstructive nor restrictive ventilatory defects. Some mild diffusion impairment but otherwise relatively normal study. We did review her chest x-ray that she had from March which demonstrated no acute disease. Overall the patient is doing well she will continue on the Advair for now no additional interventions needed. 11/22/2023 the patient is here for a pulmonary follow-up visit. Overall the patient has been doing well from a respiratory status. She continues use the Advair daily. The patient does not need a rescue inhaler. She is done fairly well from the COPD standpoint. The patient has not had a chest x-ray in few years. Will have her get an x-ray prior to the next visit. In the meantime she continues uses CPAP every night. The CPAP therapy continues to be very affecting beneficial. She has been on CPAP for more than 15 years. The patient states that her machine although sudden stop working. She did call her [employer], [facility] and they did help her with it but they explained to her that her motor has exceeded the life of the machine and she needs to get a replacement machine. Therefore she is here to get a new machine. The patient will hit a new AirSense 11 from her [employer] she does use a fullface mask. Will set it APAP and hopefully will adjust the pressures accordingly during the next visit. [facility] Medical History (Updated 11/22/23 @ 09:11 by Quinn Patterson MD) CHRISTOPHER on CPAP Asthma Back pain Atelectasis COPD (chronic obstructive pulmonary disease) Social History (Updated 08/31/20 @ 08:55 by CHRISTA Correa) Alcohol intake: never Patient Tobacco Use Status: Never used Tobacco Review of Systems Const Denies night sweats ENT Denies change in voice, Denies lip swelling, Denies mouth pain, Reports nasal congestion, Reports nasal discharge and Denies tongue swelling Card Denies chest pain and Reports dyspnea on exertion Resp Reports cough and Reports dyspnea on exertion GI Denies abdominal pain Musc Reports abnormal gait and Reports back pain Neuro Denies Neuro-related abnormal movements and Reports abnormal gait Psych Denies no additional complaints Eliu/Lymph Denies easy bleeding and Denies lymphadenopathy Aller/Immun Denies lip swelling and Denies tongue swelling Physical Exam Vital Signs: Last Vital Signs Pulse 72 11/22/23 08:48 BP 128/60 11/22/23 08:48 Pulse Ox 96 11/22/23 08:48 Oxygen Delivery Method Room Air 11/22/23 08:48 BMI result Body Mass Index 25.5 Const General: alert Neck Neck: Yes normal visual inspection, Yes full ROM and Yes no lymphadenopathy Chest Chest palpation & inspection: normal inspection of the chest Resp Auscultation: diminished lung sounds Cardio Rate: regular rate Rhythm: regular rhythm Heart sounds: S1 normal heart sound present and S2 normal heart sound present GI Palpation (GI): Soft to palpation and nontender Auscultation: normal bowel sounds Skin General skin exam: rashes and/or lesions noted Assessment & Plan Assessment & Plan (1) COPD (chronic obstructive pulmonary disease): Code(s): J44.9 - Chronic obstructive pulmonary disease, unspecified Qualifiers: COPD type: chronic bronchitis Chronic bronchitis type: simple Qualified Code(s): J41.0 - Simple chronic bronchitis (2) CHRISTOPHER on CPAP: Code(s): G47.33 - Obstructive sleep apnea (adult) (pediatric) (3) Atelectasis: Comment: Postoperative changes Code(s): J98.11 - Atelectasis Plan continue APAP, needs replacement APAP at this time due to a malfuctioning machine, , [facility] Continue with Advair HFA Short-acting beta agonist as needed Continue with activity as tolerated. Would benefit from continue an exercise program Deep breathing exercises CXR Follow-up 6 months Orders: Orders XR chest 2V Today J44.9 - Chronic obstructive pulmonary disease, unspecified Coding Level of Care Code Est Pt Level 4 (15426) Diagnoses Simple chronic bronchitis J41.0 COPD type: chronic bronchitis Chronic bronchitis type: simple CHRISTOPHER on CPAP G47.33 Atelectasis J98.11 Time Spent (min) 17
[2023-11-22 08:48] VITALS: BP 128/60; PULSE 72; O2SAT 96; BMI 25.5
== END 2023-11-22 09:08 | disposition home or self-care (01) ==
PROVIDERS: PCP Internal Medicine; Visit Provider Hospitalist
DX: J41.0 Simple chronic bronchitis (principal); G47.33 Obstructive sleep apnea (adult) (pediatric); J98.11 Atelectasis
CPT/HCPCS: 99214

== ENCOUNTER → 2023-11-22 08:21 | Outpatient (BNVA) | payer MEDICARE, SELFPAY | PROVIDERS: PCP Internal Medicine; Visit Provider Hospitalist | DX: J41.0 Simple chronic bronchitis (principal); G47.33 Obstructive sleep apnea (adult) (pediatric); J98.11 Atelectasis; Z99.89 Dependence on other enabling machines and devices | CPT/HCPCS: 99212 ==

== ENCOUNTER 2024-02-05 10:47 | Outpatient (REF) | payer MEDICARE, SELFPAY ==
--- NOTE | ~2024-02-05 | XR_ITS ---
EXAMINATION: XR LUMBAR SPINE XR PELVIS XR THORACIC SPINE CLINICAL INFORMATION: Back pain, fell. COMPARISON: Pelvis and lumbar spine of December 17, 2021. Chest of 06/19/2020 and 03/28/2021. TECHNIQUE: 3 views of the thoracic spine, AP view of the pelvis, 6 views of the lumbar spine. FINDINGS: THORACIC SPINE: Status post median sternotomy with median sternotomy wires and mediastinal clips. S-shaped thoracolumbar scoliosis. Advanced multilevel degenerative changes in the thoracic spine. Stimulator with tips projecting at the level of the T7-T8 disc space. LUMBAR SPINE: Redemonstration of posterior spinal fusion at L4-S1 with disc spacer at L5-S1 and L4-L5. Hardware appears intact. Mild anterolisthesis of L3 on L4, and of L4 on L5. Advanced degenerative changes with loss of disc space height and subchondral sclerosis in the remainder of the lumbar spine. Electronic pacer device overlies the soft tissues posterior to the sacrum. Diffuse osteopenia. PELVIS: Diffuse demineralization. Pubic symphysis maintained. Mild degenerative changes in the bilateral hips and sacroiliac joints. Extensive vascular calcifications. XR/XR pelvis 1-2V IMPRESSION: 1. Advanced multilevel degenerative changes in the thoracic spine. 2. Redemonstration of posterior spinal fusion at L4-S1 with disc spacer at L5-S1 and L4-L5. Hardware appears intact. 3. Advanced degenerative changes in the remainder of the lumbar spine. 4. Mild degenerative changes in the bilateral hips and sacroiliac joints. 5. Additional imaging with CT scan or MRI should be considered if there is clinical concern for fracture or other underlying pathology in this patient with history of recent fall.
--- NOTE | ~2024-02-05 | XR_ITS ---
EXAMINATION: XR LUMBAR SPINE XR PELVIS XR THORACIC SPINE CLINICAL INFORMATION: Back pain, fell. COMPARISON: Pelvis and lumbar spine of December 17, 2021. Chest of 06/19/2020 and 03/28/2021. TECHNIQUE: 3 views of the thoracic spine, AP view of the pelvis, 6 views of the lumbar spine. FINDINGS: THORACIC SPINE: Status post median sternotomy with median sternotomy wires and mediastinal clips. S-shaped thoracolumbar scoliosis. Advanced multilevel degenerative changes in the thoracic spine. Stimulator with tips projecting at the level of the T7-T8 disc space. LUMBAR SPINE: Redemonstration of posterior spinal fusion at L4-S1 with disc spacer at L5-S1 and L4-L5. Hardware appears intact. Mild anterolisthesis of L3 on L4, and of L4 on L5. Advanced degenerative changes with loss of disc space height and subchondral sclerosis in the remainder of the lumbar spine. Electronic pacer device overlies the soft tissues posterior to the sacrum. Diffuse osteopenia. PELVIS: Diffuse demineralization. Pubic symphysis maintained. Mild degenerative changes in the bilateral hips and sacroiliac joints. Extensive vascular calcifications. XR/XR lumbar spine 4V min IMPRESSION: 1. Advanced multilevel degenerative changes in the thoracic spine. 2. Redemonstration of posterior spinal fusion at L4-S1 with disc spacer at L5-S1 and L4-L5. Hardware appears intact. 3. Advanced degenerative changes in the remainder of the lumbar spine. 4. Mild degenerative changes in the bilateral hips and sacroiliac joints. 5. Additional imaging with CT scan or MRI should be considered if there is clinical concern for fracture or other underlying pathology in this patient with history of recent fall.
--- NOTE | ~2024-02-05 | XR_ITS ---
EXAMINATION: XR LUMBAR SPINE XR PELVIS XR THORACIC SPINE CLINICAL INFORMATION: Back pain, fell. COMPARISON: Pelvis and lumbar spine of December 17, 2021. Chest of 06/19/2020 and 03/28/2021. TECHNIQUE: 3 views of the thoracic spine, AP view of the pelvis, 6 views of the lumbar spine. FINDINGS: THORACIC SPINE: Status post median sternotomy with median sternotomy wires and mediastinal clips. S-shaped thoracolumbar scoliosis. Advanced multilevel degenerative changes in the thoracic spine. Stimulator with tips projecting at the level of the T7-T8 disc space. LUMBAR SPINE: Redemonstration of posterior spinal fusion at L4-S1 with disc spacer at L5-S1 and L4-L5. Hardware appears intact. Mild anterolisthesis of L3 on L4, and of L4 on L5. Advanced degenerative changes with loss of disc space height and subchondral sclerosis in the remainder of the lumbar spine. Electronic pacer device overlies the soft tissues posterior to the sacrum. Diffuse osteopenia. PELVIS: Diffuse demineralization. Pubic symphysis maintained. Mild degenerative changes in the bilateral hips and sacroiliac joints. Extensive vascular calcifications. XR/XR thoracic spine 3V IMPRESSION: 1. Advanced multilevel degenerative changes in the thoracic spine. 2. Redemonstration of posterior spinal fusion at L4-S1 with disc spacer at L5-S1 and L4-L5. Hardware appears intact. 3. Advanced degenerative changes in the remainder of the lumbar spine. 4. Mild degenerative changes in the bilateral hips and sacroiliac joints. 5. Additional imaging with CT scan or MRI should be considered if there is clinical concern for fracture or other underlying pathology in this patient with history of recent fall.
== END 2024-02-05 10:48 | disposition home or self-care (01) ==
LOC: HO.XRAY 10:47
PROVIDERS: PCP Internal Medicine; Visit Provider Student in an Organized Health Care Education/Training Program
DX: M54.6 Pain in thoracic spine (principal); M25.551 Pain in right hip; M54.50 Low back pain, unspecified
CPT/HCPCS: 72072; 72110; 72170

== ENCOUNTER 2024-02-13 08:51 | Outpatient (REF) | payer MEDICARE, SELFPAY ==
--- NOTE | ~2024-02-13 | MM_ITS ---
EXAMINATION: BONE DENSITOMETRY CLINICAL INDICATION: Osteoporosis. COMPARISON: Previous BD dated 02/11/2022 and baseline BD dated 06/26/2008. TECHNIQUE: Using a [employer] DXA System (software version: 13.1) manufactured by [employer], dual-energy x-ray absorptiometry was performed of the lumbar spine and left hip. The images are of good technical quality. Summary results are attached. FINDINGS: LEFT FEMUR, NECK: Current: BMD 0.448 g/cm2, Z-score -2.2, T-score -4.2, osteoporosis. Prior: BMD 0.803 g/cm2. Baseline: BMD 0.844 g/cm2. LEFT FEMUR, TOTAL: Current: BMD 0.515 g/cm2, Z-score -2.1, T-score -3.9, osteoporosis, 39.5% decrease from previous, 44.6% decrease from baseline (<5% change is not significant). Prior: BMD 0.851 g/cm2. Baseline: BMD 0.929 g/cm2. AP SPINE L1-L2 (excluding L3 and L4): The data of L1-L4 has been changed to exclude the L3 and L4 vertebral bodies, because metallic hardware at these levels may cause overestimation of lumbar spine density. Current: BMD 1.810 g/cm2, Z-score 7.2, T-score 5.4, normal, 5.4% increase from previous, 57.9% increase from baseline (<5% change is not significant). Prior: BMD 1.718 g/cm2. Baseline: BMD 1.146 g/cm2. IDENTIFIED RISK FACTORS: Menopause, height loss, history of fracture (adult), osteoporosis, recurrent falls. HISTORY OF FRACTURE: Pelvis. MEDICATIONS: Vitamin D, bisphosphonate. MM/XR DEXA axial skeleton IMPRESSION: 1. DIAGNOSIS: Severe osteoporosis based on the lowest T-score value of -4.2 in the femur neck and history of fracture of pelvis applying World Health Organization criteria. 2. 10-YEAR FRACTURE RISK PREDICTION, FRAX: According to the guidelines, FRAX calculation should only be performed on patients in the osteopenia bone density category. Therefore, FRAX was not performed on this patient. 3. Treatment Recommendations: NOF guidelines recommend consideration for treatment in postmenopausal women and men age 50 and older presenting with the following: -A hip or vertebral (clinical or morphometric) fracture. -T-score less than or equal to -2.5 at the femoral neck or spine after appropriate evaluation to exclude secondary causes. -Low bone mass at the hip or spine and a 10-year fracture probability by FRAX of greater than or equal to 3% for hip fracture or greater than or equal to 20% for major osteoporotic fracture based on the [place] adapted WHO algorithm. 4. Other Recommendations: All treatment decisions require clinical judgment and consideration of individual patient factors, including patient preferences, comorbidities, previous drug use, risk factors not captured in the FRAX model (e.g. frailty, falls, vitamin D deficiency, increased bone turnover, interval significant decline in bone density) and possible under or overestimation of fracture risk by FRAX. Additional medical evaluation for secondary cause of low bone mineral density may be appropriate. FUTURE SCAN RECOMMENDATION: People with diagnosed cases of osteoporosis or at high risk for fracture should have regular bone mineral density tests. For patients eligible for Medicare, routine testing is allowed once every 2 years. The testing frequency can be increased to one year for patients who have rapidly progressing disease, those who are receiving or discontinuing medical therapy to restore bone mass, or have additional risk factors.
== END 2024-02-13 08:52 | disposition home or self-care (01) ==
LOC: HO.MAMMO 08:51
PROVIDERS: PCP Internal Medicine; Visit Provider Internal Medicine Endocrinology, Diabetes & Metabolism
DX: Z13.820 Encounter for screening for osteoporosis (principal); Z78.0 Asymptomatic menopausal state; M81.0 Age-related osteoporosis without current pathological fracture
CPT/HCPCS: 77080

== ENCOUNTER 2024-05-24 10:13 | Outpatient (AMB) | payer MEDICARE, SELFPAY ==
--- NOTE | 2024-05-24 10:26 | MHC.OFFVIS ---
Vital Signs 05/24/24 10:27 Height 5 ft 1 in Weight 129 lb BMI 24.4 BP 118/60 Blood Pressure Location Lt brachial Position Sitting Pulse 67 Pulse Source Pulse Oximeter Pulse Oximetry (%) 96 Oxygen Delivery Method Room Air Intake Visit Reasons: Obstructive sleep apnea Factory Expert Required: No Allergies adhesive tape [TAPE,ADHESIVE] Allergy (Severe, Verified 05/24/24 10:26) RASH cefazolin Allergy (Mild, Verified 05/24/24 10:26) RASH cephalexin [Keflex] Allergy (Mild, Verified 05/24/24 10:26) Rash clindamycin Allergy (Mild, Verified 05/24/24 10:26) RASH HPI Comments Details: The patient is a 74-year-old woman known history of asthma COPD overlap syndrome. Overall she is doing well from a respiratory status. She continues her inhalers which she tolerated very well. The only problem is that she tends to hit the donut hole close to this time a year. Therefore she is always wondering if there is something else she can take that is less expensive. She has not had to use any prednisone. Over the summer she did have a course of cold and she did use her rescue inhaler more often which helped the time. But, now she is back to her baseline. She also had an x-ray back at [facility] last year. I do not have the results of this time. 08/31/2020 the patient is here for pulmonary follow-up visit. Overall she is doing well from a respiratory status. She continues to use her Advair HFA with good results. She denies any significant coughing or wheezing. However, she has noticed increasing cough on a surgeon. Mild in severity. Juan Jose because she has significant back pain making it hard for her to walk regularly. We did look at her last x-ray from May demonstrating some discoid atelectasis at the left base. She is going to follow-up with her surgeon regarding her significant back pain after she had her surgery done back in February 2020. At this time the patient will plan to come back in the fall of 2020 will do an x-ray and also pulmonary function studies. 08/06/2021 the patient is here for a pulmonary follow-up visit. Overall the patient has been doing well from a respiratory status. In the summertime she was complaining of increasing GI discomfort in addition to epigastric discomfort. The patient was evaluated by Cardiology. She did undergo a cardiac stress test which was abnormal. Therefore she had a cardiac catheterization. The patient was found to have coronary artery disease and was admitted to the hospital and underwent a quadruple cardiac bypass surgery. The patient tolerated the surgery very well. She did require transfusion after worse. She was able to go home. The patient has been feeling very well now denies any shortness of breath or any chest discomfort. She actually continues use the Advair. She did undergo pulmonary function studies which were personally viewed by me. It appears that she has no obstructive nor restrictive ventilatory defects. Some mild diffusion impairment but otherwise relatively normal study. We did review her chest x-ray that she had from March which demonstrated no acute disease. Overall the patient is doing well she will continue on the Advair for now no additional interventions needed. 11/22/2023 the patient is here for a pulmonary follow-up visit. Overall the patient has been doing well from a respiratory status. She continues use the Advair daily. The patient does not need a rescue inhaler. She is done fairly well from the COPD standpoint. The patient has not had a chest x-ray in few years. Will have her get an x-ray prior to the next visit. In the meantime she continues uses CPAP every night. The CPAP therapy continues to be very affecting beneficial. She has been on CPAP for more than 15 years. The patient states that her machine although sudden stop working. She did call her [employer] [facility] and they did help her with it but they explained to her that her motor has exceeded the life of the machine and she needs to get a replacement machine. Therefore she is here to get a new machine. The patient will hit a new AirSense 11 from her [employer] she does use a fullface mask. Will set it APAP and hopefully will adjust the pressures accordingly during the next visit. 05/24/2024 the patient is here for a pulmonary follow-up visit. Overall the patient has been doing better. Few months ago she did have a bout of sinusitis. She went to see her primary care doctor and was given some antibiotics that did improve her respiratory symptoms. She is back to her baseline. She continues use the Advair once a day which is is perfectly fine. She can always increase it to twice a day if needed. In addition to that she did get a new CPAP. The CPAP therapy has been affecting beneficial. She does use for more than 4 hours. I did tell the next time she gets sinusitis she can stop the CPAP for a couple days to allow recovery. However she did use it throughout. Her AHI is slightly elevated at 4. Her average pressure is around 10. Therefore I increased her minimum pressure from 6-8. Set up the ramp if need be. She will continue to use it if she has not issues she will call me. The patient will continue with the current therapy and will follow-up in a year's time. Prior to the next visit she should have a chest x-ray since the last x-ray was back in 2020 and demonstrated a slight elevation of right hemidiaphragm. [facility] Medical History (Updated 11/22/23 @ 09:11 by Quinn Patterson MD) CHRISTOPHER on CPAP Asthma Back pain Atelectasis COPD (chronic obstructive pulmonary disease) Social History (Updated 08/31/20 @ 08:55 by Olga Rollins Silvia) Alcohol intake: never Patient Tobacco Use Status: Never used Tobacco Review of Systems Const Denies night sweats ENT Denies change in voice, Denies lip swelling, Denies mouth pain, Reports nasal congestion, Reports nasal discharge and Denies tongue swelling Card Denies chest pain and Reports dyspnea on exertion Resp Reports cough and Reports dyspnea on exertion GI Denies abdominal pain Musc Reports abnormal gait and Reports back pain Neuro Denies Neuro-related abnormal movements and Reports abnormal gait Psych Denies no additional complaints Eliu/Lymph Denies easy bleeding and Denies lymphadenopathy Aller/Immun Denies lip swelling and Denies tongue swelling Physical Exam Vital Signs: Last Vital Signs Pulse 67 05/24/24 10:27 BP 118/60 05/24/24 10:27 Pulse Ox 96 05/24/24 10:27 Oxygen Delivery Method Room Air 05/24/24 10:27 BMI result Body Mass Index 24.4 Const General: alert Neck Neck: Yes normal visual inspection, Yes full ROM and Yes no lymphadenopathy Chest Chest palpation & inspection: normal inspection of the chest Resp Auscultation: diminished lung sounds Cardio Rate: regular rate Rhythm: regular rhythm Heart sounds: S1 normal heart sound present and S2 normal heart sound present GI Palpation (GI): Soft to palpation and nontender Auscultation: normal bowel sounds Skin General skin exam: rashes and/or lesions noted Assessment & Plan Assessment & Plan (1) COPD (chronic obstructive pulmonary disease): Code(s): J44.9 - Chronic obstructive pulmonary disease, unspecified Category: Medical Qualifiers: COPD type: chronic bronchitis Chronic bronchitis type: simple Qualified Code(s): J41.0 - Simple chronic bronchitis (2) CHRISTOPHER on CPAP: Code(s): G47.33 - Obstructive sleep apnea (adult) (pediatric) Category: Medical (3) Atelectasis: Comment: Postoperative changes Code(s): J98.11 - Atelectasis Category: Medical Plan continue APAP, needs replacement APAP at this time due to a malfuctioning machine, FM, [facility] Continue with Advair HFA Short-acting beta agonist as needed Continue with activity as tolerated. Would benefit from continue an exercise program Deep breathing exercises CXR Follow-up 6-8 months Orders: Orders XR chest 2V Today J45.40 - Moderate persistent asthma, uncomplicated Coding Level of Care Code Est Pt Level 4 (85440) Diagnoses Simple chronic bronchitis J41.0 COPD type: chronic bronchitis Chronic bronchitis type: simple CHRISTOPHER on CPAP G47.33 Atelectasis J98.11 Time Spent (min) 16
[2024-05-24 10:27] VITALS: BP 118/60; PULSE 67; O2SAT 96; BMI 24.4
== END 2024-05-24 10:42 | disposition home or self-care (01) ==
PROVIDERS: PCP Internal Medicine; Visit Provider Hospitalist
DX: J41.0 Simple chronic bronchitis (principal); G47.33 Obstructive sleep apnea (adult) (pediatric); J98.11 Atelectasis
CPT/HCPCS: 99214

== ENCOUNTER → 2024-05-24 10:13 | Outpatient (BNVA) | payer MEDICARE, SELFPAY | PROVIDERS: PCP Internal Medicine; Visit Provider Hospitalist | DX: G47.33 Obstructive sleep apnea (adult) (pediatric) (principal); J41.0 Simple chronic bronchitis; J98.11 Atelectasis | CPT/HCPCS: 99212 ==

== ENCOUNTER 2024-05-30 11:34 | Outpatient (REF) | payer MEDICARE, SELFPAY ==
--- NOTE | ~2024-05-30 | XR_ITS ---
EXAMINATION: XR CHEST 2 VIEWS CLINICAL INFORMATION: Moderate persistent asthma, uncomplicated J45.40. COMPARISON: XR Chest 03/28/2021 TECHNIQUE: 2 views of the chest were obtained. FINDINGS: The cardiac silhouette is normal. There is mild diffuse bronchial wall thickening. There are no areas of consolidation. There are no pleural effusions or pneumothoraces. The bones and soft tissues are unremarkable for the patient's age. Partially visualized spinal stimulator. XR/XR chest 2V IMPRESSION: Bronchial wall thickening may be infectious and/or inflammatory in etiology. Electronically signed by: Meredith Henry MD 08/08/2024 10:34 AM BENJA Workstation: [place] [id number]
== END 2024-05-30 11:35 | disposition home or self-care (01) ==
LOC: HO.HMGCX 11:34
PROVIDERS: PCP Internal Medicine; Visit Provider Hospitalist
DX: J45.40 Moderate persistent asthma, uncomplicated (principal)
CPT/HCPCS: 71046

== ENCOUNTER 2024-09-05 11:37 | Outpatient (REF) | payer MEDICARE, SELFPAY ==
--- NOTE | ~2024-09-05 | MM_ITS ---
EXAMINATION: MM SCREENING DIGITAL BREAST TOMOSYNTHESIS, BILATERAL CLINICAL INFORMATION: Screening. Asymptomatic. COMPARISON: Mammography: Comparison is made with available priors TECHNIQUE: Digital breast mammography with tomosynthesis is performed in both the craniocaudal and mediolateral oblique views along with computer-aided detection (CAD). FINDINGS: There are scattered areas of fibroglandular density (ACR BI-RADS breast composition Category b). There are no significant masses, abnormal calcifications, or other abnormalities. MM/MM tomosynthesis screening BI IMPRESSION: No mammographic evidence of malignancy. ASSESSMENT: BI-RADS BI-RADS 1 - Negative RECOMMENDATION: Routine annual mammography screening. 1 year F/U This examination should not preclude the clinical evaluation of a suspicious palpable abnormality. This patient's information was entered into a reminder system with a target due date for their next mammogram. Electronically signed by: Katya Palma DO 09/12/2024 02:16 PM BENJA
--- OUTSIDE RECORDS SUMMARY | 2024-09-05 12:17 | XMS_ITS | Continuity of Care Document ---
Author Organization [place] - [facility], [facility] Address [address] [place] [address] Care Team Providers Care Crna Name Role Phone JENNIFER YEBOAH Primary Care Provider Assessment Encounter Date Assessment Date Assessment LastModified by Organization Details LastModified Time 08/06/2024 08/06/2024 74 yo F presents for evaluation for facial pain. 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 I reviewed the images with her. Nasal mucosa is mildly congested. She could try a nasal steroid. Incidentally noted cerumen was removed on the left. She has tenderness to palpation over the jaw joints. We reviewed jaw joint precautions. She may follow-up as needed. riya Not available 08/07/2024 08:21:14 Plan of Treatment Reminders Order Date Submit Date Provider Last Modified By Organization Details Last Modified Time Details Appointments None record ed. Lab None record ed. Referral None record ed. Procedures None record ed. Surgeries None record ed. Imaging None record ed. Medication Orders None record ed. Patient TargetsNo targets recorded. Patient InstructionsNo instructions recorded. Reason for Referral None Reported. Results Created Date Observation Date Name Description Value Unit Range Abnormal Flag Note LastModifiedBy Organization Detail LastModifiedTime 07/30/2007/30/2024 CT, maxil lofac ial, w/o contr ast No observ ation record ed. [email or web address] [facility] [address] [facility], [place], [address], 07/31/2024 11:06:35 12/07/16/2024 CT, maxil lofac ial, w/o contr ast No observ ation record ed. [email or web address] Not Available 07/29 09:29:58 Result Notes None recorded. Problems Name Problem SNOMED Code Status Onset Date Resolution Date Notes Provider Name and Address Organization Details Recorded Time Sensorine ural hearing loss 87441739 Active 2017 Sensorine ural hearing loss, unilatera l, left ear, with unrestric sunita hearing on the contralat eral side; Note: Date Diagnosed : 12/18/2017 10:44 AM (H90.42) Not Available [facility] 4 02:48:11 Xerostomi a 95512058 Active 2021 Dry mouth, unspecifi ed; Note: Date Diagnosed : 11/07/2021 11:01 AM (R68.2) Not Available [facility] 4 02:48:04 Impacted cerumen in left ear 81108674369 35791 Active 2015 Impacted cerumen, left ear; Note: Date Diagnosed : 06/01/2016 12:32 PM (H61.22) Not Available [facility] 4 02:48:07 Headache 61688858 Active 2017 Headache; Note: Date Diagnosed : 12/18/2017 10:59 AM (R51) Not Available [facility] 4 02:48:05 Arthralgi a of temporoma ndibular joint 13190745 Active 2020 Arthralgi a of temporoma ndibular joint; Note: Date Diagnosed : 01/11/2021 11:54 AM (M26.62) Not Available [facility] 4 02:48:05 Dizziness and giddiness 346669686 Active 2017 Dizziness and giddiness ; Note: Date Diagnosed : 12/18/2017 10:59 AM (R42) Not Available [facility] 4 02:48:03 Allergic rhinitis 41688590 Active 2015 Perennial allergic rhinitis; Note: Date Diagnosed : 06/01/2016 12:33 PM (J30.89) Not Available [facility] 4 02:48:05 Dysphonia 95265888 Active 2015 Hoarsenes s; Note: Date Diagnosed : 06/01/2016 12:37 PM (R49.0) Not Available [facility] 4 02:48:04 Sensorine ural hearing loss of bilateral ears 496198847 Active 2020 Sensorine ural hearing loss, bilateral ; Note: Date Diagnosed : 01/11/2021 10:50 AM (H90.3) Not Available [facility] 4 02:48:06 Otalgia of left ear 0213242378 Active 2020 Otalgia, left ear; Note: Date Diagnosed : 01/11/2021 10:32 AM (H92.02) Not Available [facility] 4 02:48:07 Impacted cerumen of bilateral ears 52133100456 84290 Active 2019 Impacted cerumen, bilateral ; Note: Date Diagnosed : 03/18/2020 10:59 AM (H61.23) Not Available [facility] 4 02:48:08 Abnormal auditory perceptio n 13309084 Active 2017 Other abnormal auditory perceptio ns, right ear; Note: Date Diagnosed : 12/18/2017 10:44 AM (H93.291) Not Available [facility] 4 02:48:09 Impacted cerumen in right ear 00597371673 66141 Active 2020 Impacted cerumen, right ear; Note: Date Diagnosed : 10:16 AM (H61.21) Not Available [facility] 4 02:48:06 Dysphagia 97032486 Active 2020 Dysphagia , unspecifi ed; Note: Date Diagnosed : 01/11/2021 10:32 AM (R13.10) Not Available [facility] 4 02:48:09 Bilateral temporoma ndibular joint pain 99644220861 078709 Active 2023 ERA SANCHEZ MD [address] [place] [address], [facility] [address] , [facility] - [facility] 4 08:20:38 Problem Notes None recorded. Medical Equipment None Reported. Allergies Allergen ID Allergen Name Allergen Category Reaction Reaction Severity Criticality Documentation Date Start Date Code Code System Note Provider Name and Address Organization Details Recorded Time 296007 clindamyc in hydrochlo ride medicatio n other Not available Not available 01/09/2024 07005 RxNorm React ion: unkno wn, unspe cifie d;; Not Available [facility] 4 01:06:46 473220 penicilli n V potassium medicatio n other Not available Not available 01/09/2024 69468 5 RxNorm React ion: unkno wn, unspe cifie d;; Not Available [facility] 4 01:06:50 Medications Name Sig Start Date Stop Date Status Note LastModified by Organization Details LastModified Time multivita min tablet 10/28 completed Medicati on ID: [id number] B rand Name: multivit leija Sen d Method: E-Prescr ibed Sub s Allowed: subs OK Medic ationGen ericName : multivit leija Not Available Not Available Not Available Colace 100 mg capsule 03/18 completed Medicati on ID: [id number] R nick: () Brand Name: Colace S end Method: E-Prescr ibed Sub s Allowed: subs OK Medic ationGen ericName : Colace Not Available Not Available Not Available gabapenti n 600 mg tablet 10/28 completed Medicati on ID: [id number] D uration Value: 90 Brand Name: gabapent in Send Method: E-Prescr ibed Sub s Allowed: subs OK Medic ationGen ericName : gabapent in Not Available Not Available Not Available atorvasta tin 20 mg tablet active Not Available Not Available Not Available erythromy susana 500 mg tablet TAKE TWO TABLETS BY MOUTH 1/2 HOUR BEFORE DENTAL APPOINTM ENT active Not Available Not Available No t Available meloxicam 15 mg tablet 10/28 completed Medicati on ID: [id number] D uration Value: 90 Brand Name: meloxica m Send Method: E-Prescr ibed Sub s Allowed: subs OK Medic ationGen ericName : meloxica m Not Available Not Available Not Available sumatript an 50 mg tablet active Medicati on ID: [id number] B rand Name: sumatrip cotter succinat e Send Method: E-Prescr ibed Sub s Allowed: subs OK Medic ationGen ericName : sumatrip cotter succinat e Not Available Not Available Not Available clopidogr el 75 mg tablet 08/06 completed Medicati on ID: [id number] B rand Name: clopidog rel Send Method: E-Prescr ibed Sub s Allowed: subs OK Medic ationGen ericName : clopidog rel Not Available Not Available Not Available omeprazol e 40 mg capsule,d elayed release TAKE 1 CAPSULE TWICE DAILY active Not Available Not Available No t Available aspirin 81 mg tablet,de layed release active Medicati on ID: [id number] B rand Name: aspirin Send Method: E-Prescr ibed Sub s Allowed: subs OK Speci al Instruct ion: TAKE ONE TABLET BY MOUTH EVERY DAY Medi cationGe nericNam e: aspirin Not Available Not Available Not Available tramadol 50 mg tablet TAKE ONE TO TWO TABLETS BY MOUTH THREE TIMES A DAY NEEDED ONLY WITH ACETAMIN OPHEN 1000MG active Not Available Not Available No t Available meloxicam 7.5 mg tablet TAKE ONE TABLET BY MOUTH EVERY DAY 08/06 completed Not Available Not Available Not Available doxycycli ne monohydra te 100 mg capsule TAKE ONE CAPSULE BY MOUTH TWICE A DAY WITH FOOD 08/06 completed Not Available Not Available Not Available Prozac 20 mg capsule 10/28 completed Medicati on ID: [id number] B rand Name: Prozac S end Method: E-Prescr ibed Sub s Allowed: subs OK Medic ationGen ericName : Prozac Not Available Not Available Not Available metoprolo l tartrate 50 mg tablet active Not Available Not Available Not Available Calcium-6 00 600 mg (as calcium carbonate 1,500 mg) tablet 03/18 completed Medicati on ID: [id number] R nick: () Brand Name: Calcium 600 Send Method: E-Prescr ibed Sub s Allowed: subs OK Medic ationGen ericName : Calcium 600 Not Available Not Available Not Available gabapenti n 300 mg capsule TAKE 1 CAPSULE NIGHTLY AT BEDTIME NEEDED active Not Available Not Available No t Available aspirin 81 mg chewable tablet 10/28 completed Medicati on ID: [id number] B rand Name: aspirin Send Method: E-Prescr ibed Sub s Allowed: subs OK Medic ationGen ericName : aspirin Not Available Not Available Not Available Tylenol 325 mg tablet 10/28 completed Medicati on ID: [id number] B rand Name: Tylenol Send Method: E-Prescr ibed Sub s Allowed: subs OK Medic ationGen ericName : Tylenol Not Available Not Available Not Available monteluka st 10 mg tablet 03/18 completed Medicati on ID: [id number] D uration Value: 90 Reason: () Brand Name: monteluk ast Send Method: E-Prescr ibed Sub s Allowed: subs OK Medic ationGen ericName : monteluk ast Not Available Not Available Not Available hydrochlo rothiazid e 25 mg tablet 10/28 completed Medicati on ID: [id number] D uration Value: 90 Brand Name: hydrochl orothiaz neha Send Method: E-Prescr ibed Sub s Allowed: subs OK Medic ationGen ericName : hydrochl orothiaz neha Not Available Not Available Not Available furosemid e 20 mg tablet 08/06 completed Medicati on ID: [id number] B rand Name: furosemi de Send Method: E-Prescr ibed Sub s Allowed: subs OK Speci al Instruct ion: TAKE ONE TABLET BY MOUTH EVERY DAY Medi cationGe nericNam e: furosemi de Not Available Not Available Not Available neomycin 3.5 mg/g-poly myxin B 10,000 unit/g-de xameth 0.1 % eye oint APPLY 1/4 INCH STRIP OF OINTMENT TO AFFECTED EYE AFTER HOT COMPRESS ES THREE TIMES A DAY.IF NO IMPROVEM ENT IN 3-5 DAYS CONTACT PROVIDER . 08/06 completed Not Available Not Available Not Available ciclopiro x 0.77 % topical cream APPLY ONE APPLICAT ION TWO TIMES A DAY TO SKIN OF FEET INCLUDIN G BETWEEN THE TOES FOR 30 DAYS active Not Available Not Available No t Available Systane (PF) 0.4 %-0.3 % eye drops in a dropperet te 10/28 completed Medicati on ID: [id number] B rand Name: Systane (PF) Sen d Method: E-Prescr ibed Sub s Allowed: subs OK Medic ationGen ericName : Systane (PF) Not Available Not Available Not Available Advair HFA 115 mcg-21 mcg/actua tion aerosol inhaler 10/28 completed Medicati on ID: [id number] D uration Value: 90 Brand Name: Advair HFA Send Method: E-Prescr ibed Sub s Allowed: subs OK Speci al Instruct ion: INHALE 2 PUFFS TWICE A DAY Medi cationGe nericNam e: Advair HFA Not Available Not Available Not Available Advair HFA 230 mcg-21 mcg/actua tion aerosol inhaler active Medicati on ID: [id number] B rand Name: Advair HFA Send Method: E-Prescr ibed Sub s Allowed: subs OK Medic ationGen ericName : Advair HFA Not Available Not Available Not Available Active Q 100 mg/5 mL oral suspensio n 03/18 completed Medicati on ID: [id number] R nick: () Brand Name: Active Q Send Method: E-Prescr ibed Sub s Allowed: subs OK Medic ationGen ericName : Active Q Not Available Not Available Not Available Triple [place] 3-6-9 400 mg-400 mg-400 mg capsule 03/18 completed Medicati on ID: [id number] R nick: () Brand Name: Triple [place] 3-6-9 Se nd Method: E-Prescr ibed Sub s Allowed: subs OK Medic ationGen ericName : Triple [place] 3-6-9 Not Available Not Available Not Available Prolia 60 mg/mL subcutane ous syringe 03/18 completed Medicati on ID: [id number] R nick: () Brand Name: Prolia S end Method: E-Prescr ibed Sub s Allowed: subs OK Medic ationGen ericName : Prolia Not Available Not Available Not Available Combivent Respimat 20 mcg-100 mcg/actua tion solution for inhalatio n 03/18 completed Medicati on ID: [id number] R nick: () Brand Name: Combiven t Respimat Send Method: E-Prescr ibed Sub s Allowed: subs OK Medic ationGen ericName : Combiven t Respimat Not Available Not Available Not Available Probiotic (B. coagulans ) 10 billion cell capsule,d elayed release 03/18 completed Medicati on ID: [id number] R nick: () Brand Name: Probioti c (B. coagulan s) Send Method: E-Prescr ibed Sub s Allowed: subs OK Medic ationGen ericName : Probioti c (B. coagulan s) Not Available Not Available Not Available Aimovig Autoinjec tor 140 mg/mL subcutane ous auto-inje ctor 08/06 completed Medicati on ID: [id number] B rand Name: Aimovig Autoinje ctor Sen d Method: E-Prescr ibed Sub s Allowed: subs OK Speci al Instruct ion: INJECT 1ML (140MG TOTAL) UNDER THE SKIN EVERY 28 DAYS Med icationG enericNa me: Aimovig Autoinje ctor Not Available Not Available Not Available Vitals Date Recorded Body height Body mass index (BMI) Body weight Provider Name and Address Organization Details Last Updated DateTime 08/06/2024 154.94 cm 23.2 kg/m2 24576.86 g Leandra Ponce [place] - [facility] 08/06/2024 12:55:48 Social History None recorded. Functional Status None recorded. Mental Status None recorded. Family History Nothing Reported Notes:Problems with anesthes ia: Father. Mother. Cardiovascular: Heart disease in a male, diagnosed at unknown age - father. Heart disease in a female, diagnosed at unknown age - mother. Hypertension - father, mother, and brother(s). Neurologic: Stroke - mother. Endocrine: Diabetes, age at onset unspecified - father and brother(s). Medical History No medical history recorded. Gynecological HistoryNo gynecological history recorded. Obstetrics History GPAL:G 0 P 0 0 0 0 Past Encounters Encounter ID Performer Location Encounter Start Date Encounter Closed Date Diagnosis/Indication Diagnosis SNOMED-CT Code Diagnosis ICD10 Code Diagnosis Note [id number] ERA SANCHEZ MD [facility] on [address] [place] [address] 08/06/2024 12:51:17 08/06/2024 13:08:34 Bilateral temporomandibular joint pain [id number] M26.623 Health Concerns Section Related Observation LastModified by Organization Detai ls LastModified Time None Recorded Concern Status LastModified by Organization Details LastModified Time None Recorded Payers Encounter Date Sequence Insurance Name Policy Number Policy Bentley Covered Member ID Bentley Member ID Guarantor Name 08/06/2024 1 [place] [employer] Esther Beck [id number] Esther Beck 08/06/2024 2 [place] [id number] Esther Beck [id number] Esther Duran [place] Notes Date Note Type Note Provider Name and Address Organization Details Recorded Time 08/06/2024 text/html 74 yo F presents for evaluation for facial pain. 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 Sinuses clear. H/o multiple spine surgeries, including 4 in the neck. PV (): 71-year-old female presents today for evaluation of dry mouth. She reports very dried feeling like she is choking trying to eat. 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 She was started on several new medications including Lasix, Plavix, metoprolol.she does have burning pain from her stomach and her throat. She is waiting to see GI.She is been on Advair for 25 years.She uses Biotene and lozenges ERA SANCHEZ MD [address] [place] [address], [place], [address], [place] - [facility] 08/07/2024 08:21:20 OBGyn Episode No OBEpisode recorded.
--- OUTSIDE RECORDS SUMMARY | 2024-09-05 12:17 | XMS_ITS | Data Portability ---
Author Organization [place] - [facility], Allergy Address [address] [place] [phone] Care Team Providers Care Steward/Stewardess Third Name Role Phone JENNIFER YEBOAH Primary Care [...] joint precautions. She may follow[facility] needed[facility] 08/07/2024 08:21:14 Plan of Treatment [...] contr ast No observ ation record ed. [email or web address] [address] [place], [address], 07/31/2024 11:06:35 08/16/20 24 07/16/2024 CT, maxil lofac ial, w/o contr ast No observ ation record ed. [email or web address] Not Available 07/29 09:29:58 Result Notes None recorded. Problems Name Problem SNOMED Code Status Onset Date Resolution Date Notes Provider Name and Address Organization Details Recorded Time Sensorine ural hearing loss 11740965 Active 2017 Sensorine ural hearing loss, unilatera l, left ear, with unrestric sunita hearing on the contralat eral side; Note: Date Diagnosed : 12/18/2017 10:44 AM (H90.42) Not Available [facility] 4 02:48:11 Xerostomi a 66523284 Active 2021 Dry mouth, unspecifi ed; Note: Date Diagnosed : 11/07/2021 11:01 AM (R68.2) Not Available [facility] 4 02:48:04 Impacted cerumen in left ear 99970624201 73718 Active 2015 Impacted cerumen, left ear; Note: Date Diagnosed : 06/01/2016 12:32 PM (H61.22) Not Available [facility] 4 02:48:07 Headache 97546775 Active 2017 Headache; Note: Date Diagnosed : 12/18/2017 10:59 AM (R51) Not Available [facility] 4 02:48:05 Arthralgi a of temporoma ndibular joint 14774293 Active 2020 Arthralgi a of temporoma ndibular joint; Note: Date Diagnosed : 01/11/2021 11:54 AM (M26.62) Not Available [facility] 4 02:48:05 Dizziness and giddiness 616563370 Active 2017 Dizziness and giddiness ; Note: Date Diagnosed : 12/18/2017 10:59 AM (R42) Not Available [facility] 4 02:48:03 Allergic rhinitis 85736622 Active 2015 Perennial allergic rhinitis; Note: Date Diagnosed : 06/01/2016 12:33 PM (J30.89) Not Available [facility] 4 02:48:05 Dysphonia 70367878 Active 2015 Hoarsenes s; Note: Date Diagnosed : 06/01/2016 12:37 PM (R49.0) Not Available [facility] 4 02:48:04 Sensorine ural hearing loss of bilateral ears 800126790 Active 2020 Sensorine ural hearing loss, bilateral ; Note: Date Diagnosed : 01/11/2021 10:50 AM (H90.3) Not Available [facility] 4 02:48:06 Otalgia of left ear 1735103808 Active 2020 Otalgia, left ear; Note: Date Diagnosed : 01/11/2021 10:32 AM (H92.02) Not Available [facility] 4 02:48:07 Impacted cerumen of bilateral ears 67328155752 70249 Active 2019 Impacted cerumen, bilateral ; Note: Date Diagnosed : 03/18/2020 10:59 AM (H61.23) Not Available [facility] 4 02:48:08 Abnormal auditory perceptio n 41840122 Active 2017 Other abnormal auditory perceptio ns, right ear; Note: Date Diagnosed : 12/18/2017 10:44 AM (H93.291) Not Available [facility] 4 02:48:09 Impacted cerumen in right ear 01917254194 40562 Active 2020 Impacted cerumen, right ear; Note: Date Diagnosed : 1 10:16 AM (H61.21) Not Available [facility] 4 02:48:06 Dysphagia 55499607 Active 2020 Dysphagia , unspecifi ed; Note: Date Diagnosed : 01/11/2021 10:32 AM (R13.10) Not Available [facility] 4 02:48:09 Bilateral temporoma ndibular joint pain 26744626904 276769 Active 2023 ERA SANCHEZ MD [address] [place] [address], [facility] TEE [place], [phone] , [facility] - [facility] 4 08:20:38 Problem Notes None recorded. Procedures Surgical History None recorded. Imaging Results Imaging Date Name Status LastModified by Organiz [facility] Details LastModified Time 07/30/2024 CT, maxillofacial , w/o contrast completed [facility] [address] [facility], [place], [address], 07/31/2024 11:06:35 07/16/2024 CT, maxillofacial , w/o contrast completed [email or web address] Information not available 08/16/2024 09:29:58 Procedure Notes None recorded. Medical Equipment None Reported. Allergies Allergen ID Allergen Name Allergen Category Reaction Reaction Severity Criticality Documentation Date Start Date Code Code System Note Provider Name and Address Organization Details Recorded Time 491098 clindamyc in hydrochlo ride medicatio n other Not available Not available 01/09/2024 42707 RxNorm React ion: unkno wn, unspe cifie d;; Not Available [facility] 4 01:06:46 478915 penicilli n V potassium medicatio n other Not available Not available 01/09/2024 32734 5 RxNorm React ion: unkno wn, unspe cifie d;; Not Available [facility] 4 01:06:50 Medications Name Sig Start Date Stop Date Status Note LastModified by Organization Details LastModified Time multivita min tablet 10/28 completed Medicati on ID: [id number] B rand Name: multivit leija Sen d Method: E-Prescr ibed Sub s Allowed: subs OK Medic ationGen ericName : multivit leija Not Available Not Available Not Available Colace 100 mg capsule 03/18 completed Medicati on ID: [id number] R nick: () Brand Name: Colace S end Method: E-Prescr ibed Sub s Allowed: subs OK Medic ationGen ericName : Colace Not Available Not Available Not Available gabapenti n 600 mg tablet 10/28 completed Medicati on ID: [id number] D uration Value: 90 Brand Name: gabapent [...] mg tablet 10/28 completed Medicati on ID: [id number] D uration Value: 90 Brand Name: meloxica m Send Method: E-Prescr ibed Sub s Allowed: subs OK Medic ationGen ericName : meloxica m Not Available Not Available Not Available sumatript an 50 mg tablet active Medicati on ID: [id number] B rand Name: sumatrip cotter succinat e Send Method: E-Prescr ibed Sub s Allowed: subs OK Medic ationGen ericName : sumatrip cotter succinat e Not Available Not Available Not Available clopidogr el 75 mg tablet 08/06 completed Medicati on ID: [id number] B rand Name: clopidog rel Send Method: E-Prescr ibed Sub s Allowed: subs OK Medic ationGen ericName : clopidog rel Not Available Not Available Not Available omeprazol e 40 mg capsule,d elayed release TAKE 1 CAPSULE TWICE DAILY active Not Available Not Available No t Available aspirin 81 mg tablet,de layed release active Medicati on ID: [id number] B rand Name: aspirin Send Method: E-Prescr [...] mg capsule 10/28 completed Medicati on ID: [id number] B rand Name: Prozac S end Method: E-Prescr ibed Sub s Allowed: subs OK Medic ationGen ericName : Prozac Not Available Not Available Not Available metoprolo l tartrate 50 mg tablet active Not Available Not Available Not Available Calcium-6 00 600 mg (as calcium carbonate 1,500 mg) tablet 03/18 completed Medicati on ID: [id number] R nick: () Brand Name: Calcium 600 Send Method: E-Prescr ibed Sub s Allowed: subs OK Medic ationGen ericName : Calcium 600 Not Available Not Available Not Available gabapenti n 300 mg capsule TAKE 1 CAPSULE NIGHTLY AT BEDTIME NEEDED active Not Available Not Available No t Available aspirin 81 mg chewable tablet 10/28 completed Medicati on ID: [id number] B rand Name: aspirin Send Method: E-Prescr ibed Sub s Allowed: subs OK Medic ationGen ericName : aspirin Not Available Not Available Not Available Tylenol 325 mg tablet 10/28 completed Medicati on ID: [id number] B rand Name: Tylenol Send Method: E-Prescr ibed Sub s Allowed: subs OK Medic ationGen ericName : Tylenol Not Available Not Available Not Available montel[address] st 10 mg tablet 03/18 completed Medicati on ID: [id number] D uration Value: 90 Reason: () Brand Name: monteluk ast Send Method: E-Prescr ibed Sub s Allowed: subs OK Medic ationGen ericName : monteluk ast Not Available Not Available Not Available hydrochlo rothiazid e 25 mg tablet 10/28 completed Medicati on ID: [id number] D uration Value: 90 Brand Name: hydrochl orothiaz neha Send Method: E-Prescr ibed Sub s Allowed: subs OK Medic ationGen ericName : hydrochl orothiaz neha Not Available Not Available Not Available furosemid e 20 mg tablet 08/06 completed Medicati on ID: [id number] B rand Name: furosemi de Send Method: [...] dropperet te 10/28 completed Medicati on ID: [id number] B rand Name: Systane (PF) Sen d Method: E-Prescr ibed Sub s Allowed: subs OK Medic ationGen ericName : Systane (PF) Not Available Not Available Not Available Advair HFA 115 mcg-21 mcg/actua tion aerosol inhaler 10/28 completed Medicati on ID: [id number] D uration Value: 90 Brand Name: Advair HFA Send Method: E-Prescr ibed Sub s Allowed: subs OK Speci al Instruct ion: INHALE 2 PUFFS TWICE A DAY Medi cationGe nericNam e: Advair HFA Not Available Not Available Not Available Advair HFA 230 mcg-21 mcg/actua tion aerosol inhaler active Medicati on ID: [id number] B rand Name: Advair HFA Send Method: E-Prescr ibed Sub s Allowed: subs OK Medic ationGen ericName : Advair HFA Not Available Not Available Not Available Active Q 100 mg/5 mL oral suspensio n 03/18 completed Medicati on ID: [id number] R nick: () Brand Name: Active Q Send Method: E-Prescr ibed Sub s Allowed: subs OK Medic ationGen ericName : Active Q Not Available Not Available Not Available Triple [place] 3-6-9 400 mg-400 mg-400 mg capsule 03/18 completed Medicati on ID: [id number] R nick: () Brand Name: Triple [place] 3-6-9 Se nd Method: E-Prescr ibed Sub s Allowed: subs OK Medic ationGen ericName : Triple [place] 3-6-9 Not Available Not Available Not Available Prolia 60 mg/mL subcutane ous syringe 03/18 completed Medicati on ID: [id number] R nick: () Brand Name: Prolia S end Method: E-Prescr ibed Sub s Allowed: subs OK Medic ationGen ericName : Prolia Not Available Not Available Not Available Combivent Respimat 20 mcg-100 mcg/actua tion solution for inhalatio n 03/18 completed Medicati on ID: [id number] R nick: () Brand Name: Combiven t Respimat Send Method: E-Prescr ibed Sub s Allowed: subs OK Medic ationGen ericName : Combiven t Respimat Not Available Not Available Not Available Probiotic (B. coagulans ) 10 billion cell capsule,d elayed release 03/18 completed Medicati on ID: [id number] R nick: () Brand Name: Probioti c (B. coagulan s) Send Method: E-Prescr ibed Sub s Allowed: subs OK Medic ationGen ericName : Probioti c (B. coagulan s) Not Available Not Available Not Available Aimovig Autoinjec tor 140 mg/mL subcutane ous auto-inje ctor 08/06 completed Medicati on ID: [id number] B rand Name: Aimovig Autoinje ctor Sen [...] Updated DateTime 08/06/2024 154.94 cm 23.2 kg/m2 59341.86 g Leandra Ponce [place] - [facility] 08/06/2024 12:55:48 Social History None recorded. Functional [...] SNOMED-CT Code Diagnosis ICD10 Code Diagnosis Note [id number] ERA SANCHEZ MD [facility] on [address] [place] [address] 08/06/2024 12:51:17 08/06/2024 13:08:34 Bilateral temporomandibular joint pain [id number] 8144132 M26.623 Health Concerns Section Related Observation LastModified by Organization Detai ls LastModified Time None Recorded Concern Status LastModified by Organization Details LastModified Time None Recorded Advance Directives Directive None Recorded Payers Encounter Date Sequence Insurance Name Policy Number Policy Bentley Covered Member ID Bentley Member ID Guarantor Name 08/06/2024 1 [place] [employer] Esther Beck [id number] Esther Beck 08/06/2024 2 [place] [id number] Esther Beck [id number] Esther Beck Notes Date Note Type Note Provider Name [...] uses Biotene and lozenges ERA SANCHEZ MD [address] [place] [address], [phone], [place] - [facility] 08/07/2024 08:21:20 OBGyn Episode No OBEpisode recorded.
== END 2024-09-05 11:38 | disposition home or self-care (01) ==
LOC: HO.MAMMO 11:37
PROVIDERS: PCP Internal Medicine; Visit Provider Internal Medicine
DX: Z12.31 Encounter for screening mammogram for malignant neoplasm of breast (principal)
CPT/HCPCS: 77063; 77067

== ENCOUNTER → 2024-09-05 12:00 | Outpatient (BNV) | payer MEDICARE, SELFPAY | PROVIDERS: PCP Internal Medicine; Visit Provider Internal Medicine | DX: Z12.31 Encounter for screening mammogram for malignant neoplasm of breast (principal) | CPT/HCPCS: 77063; 77067 ==

== ENCOUNTER 2025-05-20 10:00 | Outpatient (AMB) | payer MEDICARE, SELFPAY ==
--- OUTSIDE RECORDS SUMMARY | 2025-01-28 10:30 | XMS_ITS ---
Author Organization [facility] Address [address] [place] [address] Care Team Providers Care Photographic Equipment Inspector Name Role Phone Mario HOLBROOK, Mike Primary Care Provider Umer Rome [phone] Encounters Encounter Location Date Provider Diagnosis [address] [address] 01/28/2025 Umer Briggs Plan Of Treatment Next Appt Details Provider Name:Umer Briggs , 06/06/2025 10:00:00 AM, [address] [place] [address], [phone], Provider Name:Umer Briggs , 08/15/2025 12:00:00 PM, [address] [place] [address], [phone], Progress Notes * Barb DAVISB: 9 (75 yo F)Acc No.[id number]:01/28/2025 Progress Note Patient: Esther DIAZ Provider: Prabha Briggs DPM :1950 A ge:75 Y S ex:Female Date:01/28/2025 Address:[address] [place] [id number] Pcp:Mike Martin MD Subjective: * Chief Complaints: * * Medical History: Objective: * Vitals: Assessment: Plan: * Treatment: * Images: * The named appointment provid er may or may not be the originator of this progress note, and it is not deemed complete until electronically signed by the appointment provider. Sign off status: Pending * Provider: Prabha Briggs DPM Date: 01/28/2025 Generated for Ramesh Manjarrez/Beth on: 05/20/2025 12:04 PM EDT
--- OUTSIDE RECORDS SUMMARY | 2025-05-19 10:30 | XMS_ITS | Encounter Summary ---
Author Organization Located Within [facility] Address [address] [place] [address] Phone Care Team Providers Care Media Marketing Coordinator Name Role Phone Mike Martin MD Primary Care Provider [phone] Maksim Summers MD Unavailable [phone] Issac Dey MD Unavailable [phone] Mike Martin MD Unavailable [phone] Simone Shi MD Unavailable [phone] Reason for Visit * Treatment and Therapy Plan (Routine) - Authorized Specialty Diagnoses / Procedures Referred By Contac t Referred To Contact Infusion Therapy Diagnoses EVENITY Procedures SC INJ. ROMOSOZUMAB-AQQG 1 [facility] Issac Dey MD [address] [place] [address] Phone: tel: fax: [email or web address]:[email or web address] [facility] [address] [place] [address] Phone: tel: fax: Referral ID Status Reason Start Date Expiration Date V isits Requested Visits Authorized [id number] Authorized 05/19/2025 05/19/2039 99 99 Encounter Details Date Type Department Care Team (Late st Contact Info) Description 05/19/2025 10:30 AM EDT Infusion [facility] [address] [place] [address] Issac Dey MD [address] [place] [address] [email or web address] Osteoporosis (Primary Dx) Social History Tobacco Use Types Packs/Day Years Used Date Smoking Tobacco: Never Smokeless Tobacco: Never Alcohol Use Standard Drinks/Week Comments Yes 0 (1 standard drink = 0.6 oz pure alcohol) 1 glass of wine once to twice yearly Child or Family Care Answer Date Record ed Do you have problems with on e of the following making it difficult for you to work, study, or receive health care? No 02/02/2021 Education Answer Date Recorded Are you interested in more education? Not on radha e 02/06/2023 Are you concerned about learning? Not on file 02/06/2023 No 02/06/2023 No 02/06/2023 Food Answer Date Recorded Within the past 6 months we worried whether our food would run out before we got money to buy more. Never True 02/02/2021 Within the past 6 months the food we bought just didn't last and we didn't have enough money to get more. Never True Residential Stability Answer Date Recor ded What is your housing situation today? I have yolettekacie emery 02/02/2021 How many times have you move d in the past 12 months? Zero (I did not move) 02/02/2021 06 Are you worried that in t he next 2 months, you may not have your own housing to live in? No 02/02/2021 Paying for Meds Answer Date Recorded Do you have trouble paying for medicines? Yes 02/02/2021 Paying Utility Bills Answer Date Record ed Do you have trouble paying your heating or elect ricity bill? No 02/02/2021 Transportation Answer Date Recorded Has the lack of transportati on kept you from medical appointments or from getting medications? No 02/02/2021 Unemployment Answer Date Recorded Are you currently unemployed or working on a part-time or temporary basis, and looking for work? No 02/02/2021 Digital Access Answer Date Recorded No 01/23/2023 No 01/23/2023 Reliable internet access at home? Not on file 01/23/2023 Device with a working camera? Not on file Intimate Partner Violence Answer Date R ecorded Denied Basic Needs Not on file 11/22/2024 In the past 12 months have y ou been in a relationship with a person who hurts, threatens, or tries to control you? No 11/22/2024 Worried food would run out Not on file 11/22 In the past 12 months have y ou been in a relationship with a person who hurts, threatens, or tries to control you? No 11/22/2024 Comments No Sex and Gender Information Value Date Recorded Sex Assigned at Female 05/10/2021 11:12 AM EDT Legal Sex Female 10:04 PM EDT Gender Identity Female 05/10/2021 11:12 AM EDT Sexual Orientation Straight 01/06/2022 10 :29 PM EDT Sexual Orientation Asexual 01/06/2022 10 :29 PM EDT documented as of this encounter Last Filed Vital Signs Vital Sign Reading Time Taken Comments Blood Pressure 128/70 05/19/2025 10:24 AM EDT Pulse 55 05/19/2025 10:24 AM EDT Temperature 36.1 C (97 F) 05/19/2025 10:24 AM EDT Respiratory Rate 18 05/19/2025 10:24 AM EDT Oxygen Saturation 98% 05/19/2025 10:24 AM EDT Inhaled Oxygen Concentration - - Weight - - Height - - Body Mass Index - - documented in this encounter Progress Notes * Jennifer Broderick RN - 05/19/2025 10:30 AM EDT Pt here for Evenity injections. Information provided about potential side effects and adverse reactions. Patients labs meet criteria to treat and they deny any recent tooth extractions or implants. Pt tolerated injections well. documented in this encounter Plan of Treatment Upcoming Encounters Date Type Department Care Team (Late st Contact Info) Description 07/11/2025 11:30 AM EST Office Visit [facility] Internal Medicine [address] [facility] [place] [address] Mike Martin MD [address] [place] [address] 07/16/2025 10:00 AM EST Office Visit [facility] [address] [facility] [address]rd Floor, [address] [place] [address] Mark Anthony Saab MD [address] [place] [address], [address] [place] [address] 09/01/2025 1:00 PM EST Office Visit [facility] Neurology [address] [place] [address] Nam Wilburn MD [address] [place] [address], [address] [place] [address] [email or web address] 11/26/2025 10:00 AM EDT Office Visit [facility] Internal Medicine [address] [place] [address] Mike Martin MD [address] [place] [address] [email or web address] documented as of this encounter Visit Diagnoses Diagnosis Osteoporosis- Primary Unspecified osteoporosis documented in this encounter Administered Medications Inactive Administered Medications - up to 3 most recent administrations Medication Order MAR Action Action Date Dose Rate Site romosozumab-aqqg (EVENITY) subcutaneous syringe multipack 210 mg 210 mg, Subcutaneous, Once, On Mon05/19/25 at 1115, For 1 dose, Warm for 30 minutes to room temperature. Administer each syringe into a different location. Recommended sites include the thigh, abdomen or outer area of upper arm. Patient will get 2 SQ injections every month for a total of 210mg monthly THIS IS A LOW RISK HAZARDOUS AGENT. Must use appropriate precautions when handling and disposing of this agent.Indications:Osteoporosis Given 05/19/2025 10:43 AM EDT 210 mg Other documented in this encounter Additional Health Concerns Assessment Noted Time PHQ-2 Depression Total Score: 0 11/23/19 25 10:30 AM EDT documented as of this encounter Care Teams Media Marketing Coordinator Relationship Specialty Start Date End Date Mike Martin MD [address] [place] [address] PCP - General Internal Medicine 06/19/17 Maksim Summers MD [address] [place] [phone] [email or web address] [email or web address] 01/06/22 Issac Dey MD [address] [place] [address] Endocrinology 10/03/22 Mike Martin MD [address] [place] [phone] Insurance Assigned Provider 12/02/23 Simone Shi MD [address] [place] [phone] Orthopedic Surgery 05/22/23 documented as of this encounter Additional Source Comments The information contained in this document represents components of the legal health record. It is not the complete legal health record.Located Within [facility]
[2025-05-20 10:14] VITALS: BP 120/58; PULSE 71; O2SAT 97; BMI 23.5
--- NOTE | 2025-05-20 10:14 | MHC.OFFVIS ---
Vital Signs 05/20/25 10:14 Height 5 ft 1 in Weight 124 lb 8.979 oz BMI 23.5 BP 120/58 L Blood Pressure Location Rt brachial Position Sitting Pulse 71 Pulse Source Pulse Oximeter Pulse Oximetry (%) 97 Oxygen Delivery Method Room Air Intake Visit Reasons: Obstructive sleep apnea Accompanied by: Self / Same As Patient Allergies adhesive tape (TAPE,ADHESIVE) Allergy (Severe, Verified 05/20/25 10:18) RASH cefazolin Allergy (Mild, Verified 05/20/25 10:18) RASH cephalexin (Keflex) Allergy (Mild, Verified 05/20/25 10:18) Rash clindamycin Allergy (Mild, Verified 05/20/25 10:18) RASH HPI Comments Details: The patient is a 75-year-old woman known history of asthma COPD overlap syndrome. Overall she is doing well from a respiratory status. She continues her inhalers which she tolerated very well. The only problem is that she tends to hit the donut hole close to this time a year. Therefore she is always wondering if there is something else she can take that is less expensive. She has not had to use any prednisone. Over the summer she did have a course of cold and she did use her rescue inhaler more often which helped the time. But, now she is back to her baseline. She also had an x-ray back at [facility] last year. I do not have the results of this time. 08/31/2020 the patient is here for pulmonary follow-up visit. Overall she is doing well from a respiratory status. She continues to use her Advair HFA with good results. She denies any significant coughing or wheezing. However, she has noticed increasing cough on a surgeon. Mild in severity. Juan Jose because she has significant back pain making it hard for her to walk regularly. We did look at her last x-ray from May demonstrating some discoid atelectasis at the left base. She is going to follow-up with her surgeon regarding her significant back pain after she had her surgery done back in February 2020. At this time the patient will plan to come back in the fall of 2020 will do an x-ray and also pulmonary function studies. 08/06/2021 the patient is here for a pulmonary follow-up visit. Overall the patient has been doing well from a respiratory status. In the summertime she was complaining of increasing GI discomfort in addition to epigastric discomfort. The patient was evaluated by Cardiology. She did undergo a cardiac stress test which was abnormal. Therefore she had a cardiac catheterization. The patient was found to have coronary artery disease and was admitted to the hospital and underwent a quadruple cardiac bypass surgery. The patient tolerated the surgery very well. She did require transfusion after worse. She was able to go home. The patient has been feeling very well now denies any shortness of breath or any chest discomfort. She actually continues use the Advair. She did undergo pulmonary function studies which were personally viewed by me. It appears that she has no obstructive nor restrictive ventilatory defects. Some mild diffusion impairment but otherwise relatively normal study. We did review her chest x-ray that she had from March which demonstrated no acute disease. Overall the patient is doing well she will continue on the Advair for now no additional interventions needed. 11/22/2023 the patient is here for a pulmonary follow-up visit. Overall the patient has been doing well from a respiratory status. She continues use the Advair daily. The patient does not need a rescue inhaler. She is done fairly well from the COPD standpoint. The patient has not had a chest x-ray in few years. Will have her get an x-ray prior to the next visit. In the meantime she continues uses CPAP every night. The CPAP therapy continues to be very affecting beneficial. She has been on CPAP for more than 15 years. The patient states that her machine although sudden stop working. She did call her [employer], [facility] and they did help her with it but they explained to her that her motor has exceeded the life of the machine and she needs to get a replacement machine. Therefore she is here to get a new machine. The patient will hit a new AirSense 11 from her [employer] she does use a fullface mask. Will set it APAP and hopefully will adjust the pressures accordingly during the next visit. 05/24/2024 the patient is here for a pulmonary follow-up visit. Overall the patient has been doing better. Few months ago she did have a bout of sinusitis. She went to see her primary care doctor and was given some antibiotics that did improve her respiratory symptoms. She is back to her baseline. She continues use the Advair once a day which is is perfectly fine. She can always increase it to twice a day if needed. In addition to that she did get a new CPAP. The CPAP therapy has been affecting beneficial. She does use for more than 4 hours. I did tell the next time she gets sinusitis she can stop the CPAP for a couple days to allow recovery. However she did use it throughout. Her AHI is slightly elevated at 4. Her average pressure is around 10. Therefore I increased her minimum pressure from 6-8. Set up the ramp if need be. She will continue to use it if she has not issues she will call me. The patient will continue with the current therapy and will follow-up in a year's time. Prior to the next visit she should have a chest x-ray since the last x-ray was back in 2020 and demonstrated a slight elevation of right hemidiaphragm. 05/20/2025 the patient is here for pulmonary follow-up visit. Overall she is doing okay. Although she did have COVID sometime ago and she ended up having issues with likely neuropathy. She has a odd taste in her mouth and it keeps her from being able to enjoy certain foods. Therefore she actually has lost some weight. She is monitoring closely her weight though. She does try to eat regularly. The patient had continues use her CPAP. CPAP therapy has been affecting beneficial. She does use it 100% of the time more than 4 hours a night. The patient's AHI is up to 3.5. It seems that the machine is set up right now 8-18 but wants to go higher. Therefore I will justed to 9-19. She does have a comfortable mask and she does get supplies from [facility]. Therefore will go ahead and send that to her [employer]. The patient will follow-up in a year's time if she has any he can always call for further recommendations. [facility] Medical History (Updated 11/22/23 @ 09:11 by Quinn Patterson MD) CHRISTOPHER on CPAP Asthma Back pain Atelectasis COPD (chronic obstructive pulmonary disease) Social History Alcohol intake: never Patient Tobacco Use Status: Never used Tobacco Review of Systems Const Denies night sweats, Reports poor appetite and Reports weight loss ENT Denies change in voice, Denies lip swelling, Denies mouth pain, Reports nasal congestion, Reports nasal discharge and Denies tongue swelling Card Denies chest pain and Reports dyspnea on exertion Resp Reports cough and Reports dyspnea on exertion GI Denies abdominal pain Musc Reports abnormal gait and Reports back pain Neuro Denies Neuro-related abnormal movements and Reports abnormal gait Psych Denies no additional complaints Eliu/Lymph Denies easy bleeding and Denies lymphadenopathy Aller/Immun Denies lip swelling and Denies tongue swelling Physical Exam Vital Signs: Last Vital Signs Pulse 71 05/20/25 10:14 BP 120/58 L 05/20/25 10:14 Pulse Ox 97 05/20/25 10:14 Oxygen Delivery Method Room Air 05/20/25 10:14 BMI result Body Mass Index 23.5 Const General: alert Neck Neck: Yes normal visual inspection, Yes full ROM and Yes no lymphadenopathy Chest Chest palpation & inspection: normal inspection of the chest Resp Auscultation: diminished lung sounds Cardio Rate: regular rate Rhythm: regular rhythm Heart sounds: S1 normal heart sound present and S2 normal heart sound present GI Palpation (GI): Soft to palpation and nontender Auscultation: normal bowel sounds Skin General skin exam: rashes and/or lesions noted Assessment & Plan Assessment & Plan (1) COPD (chronic obstructive pulmonary disease): Code(s): J44.9 - Chronic obstructive pulmonary disease, unspecified Category: Medical Qualifiers: COPD type: chronic bronchitis Chronic bronchitis type: simple Qualified Code(s): J41.0 - Simple chronic bronchitis (2) CHRISTOPHER on CPAP: Code(s): G47.33 - Obstructive sleep apnea (adult) (pediatric) Category: Medical (3) Atelectasis: Comment: Postoperative changes Code(s): J98.11 - Atelectasis Category: Medical Plan adjusted APAP, 818 to 9-19, [facility], [facility] Continue with Advair HFA Short-acting beta agonist as needed Continue with activity as tolerated. Would benefit from continue an exercise program Deep breathing exercises start ipratropium nasal spray Follow-up 8-12 months Medications: New ipratropium bromide administer into each nostril 2 sprays intranasal TID PRN 15 mL 6RF allergy symptoms Coding Level of Care Code Est Pt Level 4 (41179) Complex EM visit Add On G2211 Diagnoses Simple chronic bronchitis J41.0 COPD type: chronic bronchitis Chronic bronchitis type: simple CHRISTOPHER on CPAP G47.33 Atelectasis J98.11 Time Spent (min) 16
--- OUTSIDE RECORDS SUMMARY | 2025-05-20 12:04 | XMS_ITS | Patient Health Record ---
[facility] Address [address] [place] [address] Care Team Providers Care Liner Man Name Role Phone Mike Martin MD Primary Care Provider Umer Rome Unavailable [phone] Allergies Allergen (clinical drug ingredient) Drug/Non Drug Allergy documented on EMR Reaction Allergy Type Onset Date Status cefazolin kefzol (uncoded) rash Allergy Act lisa clindamycin Clindamycin HCl rash Drug Allergy Active Penicillin Unknown Drug Allergy Active Reason For Referral No Information Medications Medication SIG (Take, Route, Frequency, Duration) Notes Start Date End Date Status PreserVision AREDS A ctive lasix Not-Taking Omeprazole 40 MG 1 capsule 1/2 to 1 hour before morning meal Orally Once a day Active hydroCHLOROthiazide 25 MG 1 tablet Orall y Once a day; Duration: 30 day(s) Not-Taking Advair Diskus 250-50 MCG/DOSE 1 puff Inhalation every 12 hrs Active Ammonium Lactate 12 % 1 application to affected area Externally to feet Twice a day; Duration: 30 days Active NexIUM 40 MG as directed Orally Not-Taking PROzac 20 MG 1 capsule in the morning Orally Once a day; Duration: 30 day(s) Not-Taking Spironolactone Water Pill Not- Taking Plavix Not-Taking Emgality 120 MG/ML INJECT 2 ML (240 MG TOTAL) UNDER THE SKIN ONCE FOR 1 DOSE.ONE TIME LOADING DOSE OF 240MG Subcutaneous; Duration: 30 Not-Taking Imitrex Not-Taking Magnesium Not-Taking Mobic 15 MG 1 tablet Orally Once a day; Duration: 30 day(s) Not-Taking Biotin 1000 MCG 1 tablet Orally Once a day; Duration: 30 day(s) Not-Taking Vitamin D 600 1 capsule Orally 2x day; Duration: 30 day(s) Active Ciclopirox Olamine 0.77 % 1 application Externally Twice a day to skin of feet including between the toes; Duration: 30 days Active Aimovig Not-Taking Metoprolol & Diet Manage Prod Active Soma 350 MG 1 tablet as needed Orally Four times a day Not-Taking Multi Vitamin/Minerals as directed Orally Active Systane 0.4-0.3 % 1 drop into affected eye as needed Ophthalmic 24 time(s) a day Active Tylenol 325 MG 1 tablet as needed Orally every 6 hrs Active Fish Oil 1000 MG as directed Orally Not-Taking Baby Aspirin Active Aspirin 81 MG 1 tablet Orally Once a day; Duration: 30 day(s) Not-Taking Calcium 600 MG 1 tablet with meals Orally Twice a day; Duration: 30 day(s) Active Singulair 10 MG 1 tablet in the evening Orally Once a day; Duration: 30 day(s) Not-Taking Gabapentin 200 mg Three times a day Active Combivent 18-103 MCG/ACT 2 puffs Inhalation Six times a day Not-Taking Immunizations Vaccine Route Administration Date Status Comme nts Influenza Unknown 04/27/2022 Administered Influenza Unknown 05/28/2024 Administered COVID-19 Pfizer BioNTech Vaccine Unknown 06/15/2021 Administered 1st 11/08/20 2nd 11/30/20 Social History Tobacco Use: Social History Observation Description Date Details (start date - stop date) Never Smoker NA - NA Tobacco use other than smoking: Question Answer Notes Are you an other tobacco user? No Tobacco Control (Standard) Question Answer Notes Tobacco use: Nonsmoker Additional Findings: Tobacco non-user Current no nsmoker AUDIT-C (Standard) Question Answer Notes Did you have a drink containing alcohol in the p ast year? No Points 0 Interpretation Negative Problems Problem Type SNOMED Code ICD Code Onset Dates Problem Status W/U Status Risk Notes Problem Bilateral atherosclerosis of arteries of lower limbs (disorder) ([id number] ) Atherosclerosis of [place] artery of both lower extremities, with unspecified presence of clinical manifestation (I70.203) Active confirmed Vital Signs Blood pressure diastolic 65 mm Hg 04/04/2025 Height 5ft 1in in 04/04/2025 Blood pressure systolic 126 mm Hg 04/04/2025 Weight 126 lbs 04/04/2025 BMI 23.8 kg/m2 04/04/2025 Procedures Procedure Date Ordered Date Performed Result Body Sit e 74415-GVBBWAX NAIL, 6 OR MORE 06/25/2024 N/A 62959-KBMT SKIN LESIONS, 2 TO 4 06/25/2024 N/A 98991-XTYLAGO NAIL, 6 OR MORE 09/24/2024 N/A 06396-LADD SKIN LESIONS, 2 TO 4 09/24/2024 N/A 66530-PQBRZAQ NAIL, 6 OR MORE 12/27/2024 N/A 50886-Mgcduaib Plate 12/27/2024 N/A 51479-DMNJ SKIN LESIONS, 2 TO 4 12/27/2024 N/A 31268-NRJCMMX NAIL, 6 OR MORE 04/04/2025 N/A 10239-VBEE SKIN LESIONS, 2 TO 4 04/04/2025 N/A Encounters Encounter Location Date Provider Diagnosis [address] [address] 06/25/2024 Umer Briggs Atherosclerosis of [place] artery of both lower extremities, with unspecified presence of clinical manifestation I70.203 ; Tinea unguium B35.1 ; Pain in right toe(s) M79.674 ; Pain in left toe(s) M79.675 and Tinea pedis of both feet B35.[address] [address] 09/24/2024 Umer Briggs Atherosclerosis of [place] artery of both lower extremities, with unspecified presence of clinical manifestation I70.203 ; Tinea unguium B35.1 ; Pain in right toe(s) M79.674 ; Pain in left toe(s) M79.675 and Tinea pedis of both feet B35.[address] [address] 12/27/2024 Umer Briggs Atherosclerosis of [place] artery of both lower extremities, with unspecified presence of clinical manifestation I70.203 ; Tinea unguium B35.1 ; Pain in right toe(s) M79.674 ; Pain in left toe(s) M79.675 and Ingrown nail L60.0 [facility] [address] [place] [address] 04/04/2025 Umer Rdzunier Atherosclerosis of [place] artery of both lower extremities, with unspecified presence of clinical manifestation I70.203 ; Tinea unguium B35.1 ; Pain in right toe(s) M79.674 and Pain in left toe(s) M79.675 Assessments Encounter Date Diagnosis (ICD Code) Assessment Notes Treatment Notes Treatment Clinical Notes Section Notes 06/25/2024 Tinea unguium (ICD-10 - B35.1) 06/25/2024 Atherosclerosis of [place] artery of both lower extremities, with unspecified presence of clinical manifestation (ICD-10 - I70.203) 09/24/2024 Tinea unguium (ICD-10 - B35.1) 09/24/2024 Atherosclerosis of [place] artery of both lower extremities, with unspecified presence of clinical manifestation (ICD-10 - I70.203) 12/27/2024 Tinea unguium (ICD-10 - B35.1) 12/27/2024 Atherosclerosis of [place] artery of both lower extremities, with unspecified presence of clinical manifestation (ICD-10 - I70.203) 04/04/2025 Tinea unguium (ICD-10 - B35.1) 04/04/2025 Atherosclerosis of [place] artery of both lower extremities, with unspecified presence of clinical manifestation (ICD-10 - I70.203) 04/04/2025 Pain in right toe(s) (ICD-10 - M79.674) 12/27/2024 Pain in right toe(s) (ICD-10 - M79.674) 06/25/2024 Pain in right toe(s) (ICD-10 - M79.674) 09/24/2024 Pain in right toe(s) (ICD-10 - M79.674) 06/25/2024 Pain in left toe(s) (ICD-10 - M79.675) 09/24/2024 Pain in left toe(s) (ICD-10 - M79.675) 12/27/2024 Pain in left toe(s) (ICD-10 - M79.675) 04/04/2025 Pain in left toe(s) (ICD-10 - M79.675) 12/27/2024 Ingrown nail (ICD-10 - L60.0) 06/25/2024 Tinea pedis of both feet (ICD-10 - B35.3) 09/24/2024 Tinea pedis of both feet (ICD-10 - B35.3) Plan Of Treatment Pending Test Test Name Order Date 29418-MZREUQG NAIL, 6 OR MORE 11/10/2015 13003-GVAGBSE NAIL, 6 OR MORE 02/09/2016 97484-FXVRNRJ NAIL, 6 OR MORE 04/26/2016 57661-VHLHEJC NAIL, 6 OR MORE 07/26/2016 89212-HKZNWYA NAIL, 6 OR MORE 10/25/2016 87069-DLDVKWS NAIL, 6 OR MORE 03/17/2017 37248-WGWALJF NAIL, 6 OR MORE 05/26/2017 91481-LGXPSXG NAIL, 6 OR MORE 08/04/2017 88250-MBCTCOV NAIL, 6 OR MORE 10/13/2017 26968-ZAGXHDU NAIL, 6 OR MORE 01/16/2018 41640-MKJWCQT NAIL, 6 OR MORE 03/27/2018 28112-NOEQMYJ NAIL, 6 OR MORE 12/30/2016 20860-KHCOZAC NAIL, 6 OR MORE 06/01/2018 44190-FXZZCKJ NAIL, 6 OR MORE 09/07/2018 08777-YBNKPCE NAIL, 6 OR MORE 11/30/2018 81076-ESYDNOD NAIL, 6 OR MORE 02/15/2019 62861-XQNSAGE NAIL, 6 OR MORE 05/21/2019 12707-KKFRDIQ NAIL, 6 OR MORE 07/29/2019 55849-MTZMYZH NAIL, 6 OR MORE 10/08/2019 25129-NCYWNKZ NAIL, 6 OR MORE 01/07/2020 13930-LKZJTNJ NAIL, 6 OR MORE 04/07/2020 91542-QIHWZAP NAIL, 6 OR MORE 08/11/2020 28385-KQUIFHN NAIL, 6 OR MORE 11/03/2020 94297-VOCAYZL NAIL, 6 OR MORE 01/19/2021 90737-EIKHWQX NAIL, 6 OR MORE 07/16/2021 32985-EMRMCWN NAIL, 6 OR MORE 11/05/2021 17752-ILDDGND NAIL, 6 OR MORE 01/07/2022 50720-ZERFCIL NAIL, 6 OR MORE 03/18/2022 88416-CMHYXZK NAIL, 6 OR MORE 05/27/2022 30522-GCRGPOY NAIL, 6 OR MORE 08/05/2022 03658-AXFUXTO NAIL, 6 OR MORE 10/21/2022 10604-VWRGSWF NAIL, 6 OR MORE 01/03/2023 59693-GVBFSXY NAIL, 6 OR MORE 03/17/2023 34736-YGTNBMX NAIL, 6 OR MORE 05/26/2023 58593-HSJPBEA NAIL, 6 OR MORE 08/01/2023 88815-IUWIYYX NAIL, 6 OR MORE 10/13/2023 76952-OVUKQLK NAIL, 6 OR MORE 02/02/2024 71999-MZOVAJY NAIL, 6 OR MORE 04/19/2024 07203-KDBQVAA NAIL, 6 OR MORE 06/25/2024 71005-SUVGTWL NAIL, 6 OR MORE 09/24/2024 20869-JJPISLQ NAIL, 6 OR MORE 12/27/2024 23364-GKAQMOQ NAIL, 6 OR MORE 04/04/2025 70347-Pdoe Destruction, 1-14 08/07/2015 15303-Xagz Destruction, -14 03/15/2013 01705-Qswe Destruction, -14 06/18/2013 01522-Rcof Destruction, -14 09/17/2013 41043-Asdd Destruction, -14 12/10/2013 76150-Plfb Destruction, -14 03/18/2014 50019-Mlfw Destruction, -14 06/20/2014 17225-Qoyp Destruction, -14 09/19/2014 58653-Bydx Destruction, -14 12/09/2014 61631-Lmek Destruction, -14 02/24/2015 91436-Jqbe Destruction, -14 05/26/2015 42077-Tvbcqqyg Plate 05/26/2015 66229-Xlczpkrx Plate 12/09/2014 42353-Oxzonfyo Plate 02/24/2015 78748-Lfxkoqce Plate 09/19/2014 77581-Touwkjrz Plate 06/20/2014 09821-Vjssbrjx Plate 03/18/2014 71150-Xzvjhsse Plate 09/17/2013 86422-Ionyuyjv Plate 12/10/2013 95335-Tlsgvpnm Plate 06/18/2013 11394-Ifxvjqez Plate 11/29/2011 51431-Iixhqgei Plate 02/07/2012 60232-Diuldayh Plate 04/24/2012 53612-Mlxworkd Plate 06/26/2012 61172-Qgbuszol Plate 09/07/2012 80919-Ltvdpnmz Plate 12/07/2012 26211-Uqlcirhw Plate 03/15/2013 34556-Ayjqvezk Plate 08/07/2015 72798-Kxnrzpcv Plate 06/01/2018 44148-Toeibkfm Plate 10/25/2016 00342-Ahyzpvdd Plate 01/07/2020 88213-Gvgaxqwb Plate 10/08/2019 38852-Sbjuttiz Plate 07/29/2019 31599-Ldnatpmk Plate 05/21/2019 94499-Qwcdzlbo Plate 02/15/2019 53342-Mdkkaskj Plate 11/30/2018 35467-Rnhzdigl Plate 09/07/2018 34072-Pezwvupv Plate 03/17/2017 28578-Emezgiuq Plate 02/02/2024 35807-Loxgzngo Plate 12/27/2024 97556-Rcamjisl Plate 01/03/2023 13688-Sjcrcote Plate 08/01/2023 47965-Lrabztym Plate 05/27/2022 53726-Yodnvlbe Plate 03/18/2022 36234-Kzixjauk Plate 01/07/2022 46221-Cslncczw Plate 11/05/2021 84567-Kiwfngxp Plate 07/16/2021 41693-Crwcwimu Plate 11/03/2020 55417-Sgmljjqf Plate 01/19/2021 95610-Pdrzfqhv Plate 08/11/2020 38259-Kqcmdffy Plate 04/07/2020 66155-Vaemitzj Plate Each Additional 06/2015 24754-Qlukiqnc Plate Each Additional 10/2011 65836-Pucdsnfu Plate Each Additional 94475-Dthlkbiu Plate Each Additional 44286-Gvborpmr Plate Each Additional 12466-Mtahbajy Plate Each Additional 26071-Hsaakycc Plate Each Additional 64670-Mspockbw Plate Each Additional 05174-Ujtspflb Plate Each Additional 36419-Ngsqyhtz Plate Each Additional 24721-Bvzuwtpp Plate Each Additional 03708-Kzqwsmte Plate Each Additional 63789-VZJJ SKIN LESIONS, 2 TO 4 10/13/19 24 91907-ONBF SKIN LESIONS, 2 TO 4 08/01/20 23 93544-OLNC SKIN LESIONS, 2 TO 4 05/26/20 23 52626-QQVY SKIN LESIONS, 2 TO 4 03/17/20 23 11621-PJTF SKIN LESIONS, 2 TO 4 01/04/20 23 39676-OWYC SKIN LESIONS, 2 TO 4 10/21/19 23 56154-CICT SKIN LESIONS, 2 TO 4 08/05/20 22 03452-EZRI SKIN LESIONS, 2 TO 4 12/28/19 25 07559-BRYI SKIN LESIONS, 2 TO 4 04/04/20 98172-FCKD SKIN LESIONS, 2 TO 4 09/24/19 25 71033-QVSB SKIN LESIONS, 2 TO 4 06/25/20 24 69275-GCQR SKIN LESIONS, 2 TO 4 04/19/20 24 88869-HVEB SKIN LESIONS, 2 TO 4 02/02/20 24 03009-NLFP SKIN LESION 02/09/2016 04806-ECGM SKIN LESION 11/10/2015 90939 - Punch Biopsy of Skin Lesion 05/28 Next Appt Details Provider Name:Umer William Briggs , 06/06/2025 10:00:00 AM, [address] [place] [address], [phone], Provider Name:Umer William Briggs , 08/15/2025 12:00:00 PM, [address] [place] [address], [phone], Insurance Providers Payer Name Payer Address Payer Phone Subscriber Number Group Number Insured Name Patient Relationship to Insured Coverage Start Date Coverage End Date Medicare [facility] [address] [place] [address] [phone] [id number] TarikEsther echeverria Self - patient is the insured [employer] [address] [place] [address] [id number] Kiran Esther Self - patient is the insured Medical (General) History Medical History History ICD Code osteoarthritis back, hip, knee pain depression chicken pox measles mumps headaches/migraines reflux sciatica sinus conditions joint implants/screws cholesterol Surgical History Surgery Date(Month/Year) cervic surgery lumbar shoulder surgery foot surgery carpal tunnel surgery trigger finger release cholecystectomy hammer toe gastric bypass colonoscopy/ endoscopy 12/2017 cataract surgery [facility] 2014 carpal tunnel release right hand 01/2015 wrist surgery, LT 10/2016 knee surgery, left 01/03/2017 Tooth extraction 01/12/2018 left knee replacement 12/20/2018 Back SX 03/02/20 cardiac catheterization 04/2021 Quadrupal Bipass Surgery 04/2021 spinal cord stimulator 07/27/2022 Hospitalization History Reason Date(Month/Year) [facility]- Left knee sx 01/03/2017
--- OUTSIDE RECORDS SUMMARY | 2025-05-20 12:05 | XMS_ITS | Encounter Summary ---
Author Organization [facility] Address [address] [place] [address] Phone Care Team Providers Care Blending Tank Tender Name Role Phone Mike Martin MD Unavailable Verona Dinh NP Unavailable [phone] Mike Martin MD Primary Care Provider Mike Martin MD Unavailable Simone Shi MD Unavailable Maksim Summers MD Unavailable [phone] Issac Dey MD Unavailable [phone] Mike Martin MD Unavailable [phone] Simone Shi MD Unavailable [phone] Encounter Details Date Type Department Care Team (Late st Contact Info) Description 09/28/2017 Procedure Pass [facility], [address] [address] Social History Tobacco Use Types Packs/Day Years Used Date Smoking Tobacco: Never Smokeless Tobacco: Never Alcohol Use Standard Drinks/Week Comments Yes 0 (1 standard drink = 0.6 oz pur e alcohol) rare Comments Unknown Sex and Gender Information Value Date Recorded Sex Assigned at Female 05/10/2021 11:12 AM EDT Legal Sex Female 10:04 PM EDT Gender Identity Female 05/10/2021 11:12 AM EDT Sexual Orientation Straight 01/06/2022 10 :29 PM EDT Sexual Orientation Asexual 01/06/2022 10 :29 PM EDT documented as of this encounter Last Filed Vital Signs Vital Sign Reading Time Taken Comments Blood Pressure - - Pulse - - Temperature - - Respiratory Rate - - Oxygen Saturation - - Inhaled Oxygen Concentration - - Weight 72.6 kg (160 lb) 09/29/2017 10:18 AM EST Height 157.5 cm (5' 2 ) 09/29/2017 10:18 AM EST Body Mass Index 29.26 09/29/2017 10:18 AM EST documented in this encounter Plan of Treatment Upcoming Encounters Date Type Department Care Team (Late st Contact Info) Description 07/11/2025 11:30 AM EST Office Visit [facility] Internal Medicine [address] [place] [address] Mike Martin MD [address] [place] [address] 07/16/2025 10:00 AM EST Office Visit [facility] [address] [place] [address] [address]rd Floor, [address] [place] [address] Mark Anthony Saab MD [address] [place] [address], [address] [address] 09/01/2025 1:00 PM EST Office Visit [facility] Neurology [address] [place] [address] [place] [address] Nam Wilburn MD [address] [place] [address], 2nd [place] [address] 11/26/2025 10:00 AM EDT Office Visit [facility] Internal Medicine [address] [place], [place] [phone] Mike Martin MD [address] [place], [place] [phone] documented as of this encounter Visit Diagnoses Not on filedocumented in this encounter Additional Health Concerns Infection Onset Date Last Indicated Resolved Time CoV-Presumed 08/11/2022 08/11/2022 09/01/2022 1:21 AM EST CoV-Risk 05/13/2024 05/13/2024 05/24/2024 1:22 AM EDT CoV-Risk 11/22/2024 11/22/2024 12/03/2024 1:23 AM EDT Assessment Noted Time PHQ-2 Depression Total Score: 0 09/28/19 1:02 PM EST documented as of this encounter Care Teams Blending Tank Tender Relationship Specialty Start Date End Date Mike Martin MD [address] [place] [address] PCP - General Internal Medicine 06/19/17 Mike Martin MD [address] [place] [address] Historical LMR Provider 06/18/17 10/02/22 Verona Dinh NP [address] [place] [address] Historical LMR Provider 06/18/17 09/04/21 Mike Martin MD [address] [place] [address] Insurance Assigned Provider 12/04/19 09/04/21 Simone Shi MD [address] [place] [phone] Orthopedic Surgery 01/31/20 05/21/23 Maksim Summers MD [address] [place] [address] [email or web address] 01/06/22 Issac Dey MD [address] [place] [address] [email or web address] Endocrinology 10/03/22 Mike Martin MD [address] [place] [address] [email or web address] Insurance Assigned Provider 12/02/23 Simone Shi MD [address] [place] [phone] Orthopedic Surgery 05/22/23 documented as of this encounter Additional Source Comments The information contained in this document represents components of the legal health record. It is not the complete legal health record.[facility]
--- OUTSIDE RECORDS SUMMARY | 2025-05-20 12:05 | XMS_ITS | Encounter Summary ---
Author Organization [facility] Address [address] [place] [address] Phone Care Team Providers Care Warranty Administrator Name Role Phone Mike Martin MD Unavailable [phone] Mike Martin MD Primary Care Provider [phone] Simone Shi MD Unavailable [phone] Maksim Summers MD Unavailable [phone] Issac Dey MD Unavailable [phone] Mike Martin MD Unavailable [phone] Simone Shi MD Unavailable [phone] Reason for Referral * Consultation (Routine) - Closed Specialty Diagnoses / Procedures Referred By Contac t Referred To Contact Diagnoses Osteoporosis, unspecified osteoporosis type, unspecified pathological fracture presence Issac Dey MD Phone: tel: fax: mailto: [address] [address] Phone: tel: Referral ID Status Reason Start Date Expiration Date Visits Re quested Visits Authorized [id number] Closed 09/23/2022 09/23/2023 1 1 Encounter Details Date Type Department Care Team (Latest Contact Info) Description 09/23/2022 Transcribe Orders Virtual Department [address] [place] [address] Issac Dey MD [address] [place] [address] [email or web address] Osteoporosis, unspecified osteoporosis type, unspecified pathological fracture presence (Primary Dx) Social History Tobacco Use Types Packs/Day Years Used Date Smoking Tobacco: Never Smokeless Tobacco: Never Alcohol Use Standard Drinks/Week Comments Yes 0 (1 standard drink = 0.6 oz pur e alcohol) rare Child or Family Care Answer Date Record ed Do you have problems with on e of the following making it difficult for you to work, study, or receive health care? No 02/02/2021 Education Answer Date Recorded Are you interested in help w ith more adult education (for example, completing high school, GED, job training, learning the [place]ian language, technical skills, or developing parenting skills)? No 02/02/2021 Food Answer Date Recorded Within the past [...] is your housing situation today? I have yolette emery 02/02/2021 How many times have you [...] basis, and looking for work? No 02/02/2021 Comments No Sex and Gender Information Value Date Recorded Sex Assigned at Female 05/10/2021 11:12 AM EDT Legal Sex Female 10:04 PM EDT Gender Identity Female 05/10/2021 11:12 AM EDT Sexual Orientation Straight 01/06/2022 10 :29 PM EDT Sexual Orientation Asexual 01/06/2022 10 :29 PM EDT documented as of this encounter Plan of Treatment Upcoming Encounters Date Type Department Care Team (Late st Contact Info) Description 07/11/2025 11:30 AM EST Office Visit [facility] Internal Medicine [address] [place] [address] Mike Martin MD [address] [place] [address] 07/16/2025 10:00 AM EST Office Visit [facility] [address] [place] [address] 3rd Floor, [address] [place] [address] Mark Anthony Saab MD [address] [place] [address], [address] [address] 09/01/2025 1:00 PM EST Office Visit [facility] Neurology [address] [place] [address] Nam Wilburn MD [address] [place] [address], 2nd [place] [address] 11/26/2025 10:00 AM EDT Office Visit [facility] Internal Medicine [address] [place] [address] Mike Martin MD [address] [place], [place] [phone] Scheduled Referrals Name Type Priority Associated Diagnoses Orde r Schedule Ambulatory referral to [facility] Outpatient Outpatient Referral Routine Osteoporosis, unspecified osteoporosis type, unspecified pathological fracture presence Ordered: 09/23/2022 documented as of this encounter Visit Diagnoses Diagnosis Osteoporosis, unspecified osteoporosis type, unspecified pathological fracture presence- Primary documented in this encounter Additional Health Concerns Infection Onset Date Last Indicated Resolved Time CoV-Risk 05/13/2024 05/13/2024 05/24/2024 1:22 AM EDT CoV-Risk 11/22/2024 11/22/2024 12/03/2024 1:23 AM EDT Assessment Noted Time PHQ-2 Depression Total Score: 0 02/09/20 9:58 AM EDT documented as of this encounter Care Teams Warranty Administrator Relationship Specialty Start Date End Date Mike Martin MD [address] [place] [address] [email or web address] PCP - General Internal Medicine 06/19/17 Mike Martin MD [address] [place] [address] [email or web address] Historical LMR Provider 06/18/17 10/02/22 Simone Shi MD [address] [place] [phone] Orthopedic Surgery 01/31/20 05/21/23 Maksim Summers MD [address] [place] [address] [email or web address] 01/06/22 Issac Dey MD [address] [place] [address] [email or web address] 10/03/22 Mike Martin MD [address] [place] [address] [email or web address] Insurance Assigned Provider 12/02/23 Simone Shi MD [address] [place] [phone] Orthopedic Surgery 05/22/23 documented as of this encounter Additional Source Comments The information contained in this document represents components of the legal health record. It is not the complete legal health record.[facility]
--- OUTSIDE RECORDS SUMMARY | 2025-05-20 12:05 | XMS_ITS | Encounter Summary ---
Author Organization [facility] Address [address] [place] [address] Phone Care Team Providers Care Commercial Portfolio Manager Name Role Phone Mike Martin MD Primary Care Provider [phone] Maksim Summers MD Unavailable [phone] Issac Dey MD Unavailable Mike Martin MD Unavailable [phone] Simone Shi MD Unavailable Encounter Details Date Type Department Care Team (Late st Contact Info) Description 05/06/2025 Orders Only [facility] Internal Medicine [address] [place] [address] Provider, MD [address] [place] [address] Social History Tobacco Use Types Packs/Day Years [...] your housing situation today? I have yolette sing 02/02/2021 How many times have you move [...] Description 07/11/2025 11:30 AM EST Office Visit [facility] Internal Medicine [address] [place] [address] Mike Martin MD [address] [place] [address] 07/16/2025 10:00 AM EST Office Visit [facility] [address] [place] [address] 3rd Floor, [address] [place] [address] Mark Anthony Saab MD [address] [place] [address], [address] [address] 09/01/2025 1:00 PM EST Office Visit [facility] Neurology [address] [place] [address] Nam Wilburn MD [address] [place] [address], 2nd [place] [address] 11/26/2025 10:00 AM EDT Office Visit [facility] Internal Medicine [address] [place] [address] Mike Martin MD [address] [place] [address] documented as of this encounter Procedures Procedure Name Priority Date/Time Associated Diagnosis Comments OUTSIDE LAB Routine 05/01/2025 11:41 AM EDT documented in this encounter Results * Outside Lab (05/01/2025 11:41 AM EDT) us Historical Provider LAB BLOOD ORDERABLES Winnie l Result documented in this encounter Visit Diagnoses Not on filedocumented in this encounter Additional Health Concerns Assessment Noted Time PHQ-2 Depression Total Score: 0 11/23/19 25 10:30 AM EDT documented as of this encounter Care Teams Commercial Portfolio Manager Relationship Specialty Start Date End Date Mike Martin MD [address] [place] [address] PCP - General Internal Medicine 06/19/17 Maksim Summers MD [address] [place] [address] [email or web address] 01/06/22 Issac Dey MD [address] [place] [address] Endocrinology 10/03/22 Mike Martin MD [address] [place] [address] Insurance Assigned Provider 12/02/23 Simone Shi MD [address] [place] [phone] Orthopedic Surgery 05/22/23 documented as of this encounter Additional Source Comments The information contained in this document represents components of the legal health record. It is not the complete legal health record.[facility]
--- OUTSIDE RECORDS SUMMARY | 2025-05-20 12:05 | XMS_ITS | Clinical Summary ---
Author Organization [facility] Address [address] [place] [phone] Phone Care Team Providers Care Carpet Technician Name Role Phone Mike Martin MD Primary Care Provider Maksim Summers MD Unavailable [phone] Issac Dey MD Unavailable [phone] Mike Martin MD Unavailable Simone Shi MD Unavailable Allergies Active Allergy Reactions Criticality Noted Date Comments Cefazolin Rash Low 12/16/2016 Allergy testing did not show rash but in office test not done Clindamycin Hcl Rash Medium 01/13/2017 Penicillins Rash Medium 12/16/2016 Patient states not allergic to Penicillins per Employment Trainer. But got rash on chest and upper arms when took penicillin again Rosuvastatin GI Upset 01/13/2017 Simvastatin Other (See Comments) 01/13/2017 achy joints Spironolactone Nausea and/or Vomiting 3 Topiramate Mental Status Change 10/02/2018 Confused and staggering Medications cholecalciferol (VITAMIN D3) 2,000 unit capsule 1 TAB daily Active CALCIUM CITRATE ORAL Take 630 mg by mouth 2 (two) times a day. Active VIT C/E/ZN/COPPR/LUTEIN/JULIETA SILVA (PRESERVISION AREDS 2 ORAL) Take 1 capsule by mouth 2 (two) times a day. Active docusate sodium (COLACE) 100 MG capsule Take 300 mg by mouth 2 (two) times a week. Up to 3 times a week Active FLAXSEED OIL ORAL Take 1,200 mg by mouth 2 (two) times a day (once in the morning and once in the afternoon). Active ADVAIR HFA 230-21 mcg/actuation inhaler Inhale 1 puff into the lungs daily. Active erythromycin base (E-MYCIN) 500 MG tablet Prior to dental procedures, as needed Active aspirin 81 MG EC tablet Take 1 tablet (81 mg total) by mouth daily. 60 tablet 5 Active acetaminophen (TYLENOL) 500 MG tablet Take 500 mg by mouth every 8 (eight) hours as needed for pain (specific location in comments). Active denosumab (PROLIA) 60 mg/mL Syrg subcutaneous syringe Inject 60 mg under the skin. Every 6 month Active traMADoL (ULTRAM) 50 mg tablet Take 100 mg by mouth 2 (two) times a day. Up to three times a day Active COQ10, UBIQUINOL, ORAL Take 1 tablet by mouth daily as needed. Active senna-docusate (PERICOLACE) 8.6-50 mg Take 3 tablets by mouth 2 (two) times a week. As needed Active meclizine (ANTIVERT) 12.5 mg tabletIndications:Dizzi ness and giddiness 1-2 tablets q8 hour prn vertigo 40 tablet 1 022 Active ciclopirox (CICLODAN) 0.77 % cream APPLY TO AFFECTED AREA S) TWO TIMES A DAY 023 Active PEG 400-propylene glycol (SYSTANE, PROPYLENE GLYCOL,) 0.4-0.3 % Drop Place 1 drop into each eye 2 (two) times a day. Active aflibercept (EYLEA) 2 mg/0.05 mL Soln intravitreal solutionIndications:man aged by Dr. Nelson 2 mg by Intravitreal route. Every 13 weeks into Rt eye for macular degenarention Indications: managed by Dr. Nelson Active metoprolol tartrate (LOPRESSOR) 50 MG tablet TAKE 1/2 TABLET (25MG TOTAL) TWO TIMES A DAY 90 tablet 3 01/09/2 025 Active gabapentin (NEURONTIN) 300 MG capsuleIndications:Freq uent headaches TAKE 1 CAPSULE NIGHTLY AT BEDTIME NEEDED 90 capsule 3 Active atorvastatin (LIPITOR) 20 MG tabletIndications:Pure hypercholesterolemia TAKE 1 TABLET NIGHTLY AT BEDTIME 90 tablet 3 Active Additional Information Patient not taking.Reported on 05/19/2025 metroNIDAZOLE (METROCREAM) 0.75 % cream Apply 1 Application topically 2 (two) times a day. To face for redness Active omeprazole (PRILOSEC) 40 MG capsuleIndications:Cholo roesophageal reflux disease without esophagitis TAKE 1 CAPSULE TWICE DAILY 180 capsule 3 Active erenumab-aooe (AIMOVIG AUTOINJECTOR) 140 mg/mL subcutaneous injectionIndications:In tractable migraine without aura and without status migrainosus Inject 1 mL (140 mg total) under the skin every 30 (thirty) days. 3 mL 3 Active SUMAtriptan (IMITREX) 50 MG tabletIndications:Intra ctable migraine without aura and without status migrainosus,Cervicogeni c headache Take 1 tablet (50 mg total) by mouth every 2 (two) hours as needed for migraine. Max dose 200mg per 24 hour period. 54 tablet 3 025 2024 Active Active Problems Problem Noted Date Diagnosed Date Chronic obstructive pulmonar y disease, unspecified COPD type 03/24/2025 Osteoporosis 09/23/2022 Overview (05/01/2024): [facility] Dr. Issac Dey severe bone loss despite prolia therapy- cont exercise. Ca with vit d switching to Forteo to help boost response r/t 6m Coronary artery disease invo lving [place] coronary artery of [place] heart without angina pectoris 07/19/2021 Assessment & Plan (01/08/2024 9:11 AM EDT): Continues to be asymptomatic at this time. Will continue to optimize cardiac risk factors. He is on aspirin 81 mg daily which she will remain on lifelong, atorvastatin 20 mg daily, metoprolol 25 mg twice daily. Most recent lipid panel was drawn in May and I put in for another lipid panel for her to have drawn in the fall. S/P coronary artery bypass graft x 4 06/07/2021 Assessment & Plan (06/07/2021 10:29 AM EDT): Reviewed the med list with the patient and eliminated any of the medicines that were incorrectly added or were started in the hospital and then discontinued or continued discontinued as outpatient. Current list should reflect what the patient is taking currently. Her exam is stable today, no need for med adjustments. Electrolytes will be assessed by the cardiac surgeon tomorrow on visit and sutures will be taken out at that time presumably. She has a follow-up both with cardiology and cardiac surgery to reassess the antiarrhythmic. Patient will continue on the atorvastatin as before and will discontinue the Breo but take instead the Advair which she was on previously. Myalgia 12/12/2018 Thoracic facet joint syndrome 12/12/2018 Cervical facet joint syndrome 12/12/2018 Sacroiliitis, not elsewhere classified 9 Acute pain of left knee 09/28/2017 Allergic rhinitis due to allergen 09/28/2017 Bilateral headaches 09/28/2017 Depression 09/28/2017 Encounter for screening mamm ogram for malignant neoplasm of breast 09/28/2017 Gastroesophageal reflux disease 09/28/2017 Headache 09/28/2017 Essential hypertension 09/28/2017 Assessment & Plan (01/08/2024 9:12 AM EDT): Well-controlled today at 122/60. She will continue on her medications without change. She is encouraged to follow her healthy diet including low sodium and to exercise is much as she is tolerated she is limited due to back pain. Hyperlipidemia 09/28/2017 Assessment & Plan (01/08/2024 9:12 AM EDT): Continue atorvastatin 20 mg daily. Lipid panel was put in for the follow-up. Impaired fasting glucose 09/28/2017 Joint pain 09/28/2017 Low back pain 09/28/2017 Mild persistent asthma without complication 08/2017 Primary osteoarthritis involving multiple joints 09/28/2017 Pure hypercholesterolemia 09/28/2017 Retinal vascular occlusion 09/28/2017 Sciatica 09/28/2017 Left wrist pain 09/28/2017 Osteopenia 09/28/2017 Resolved Problems Problem Noted Date Diagnosed Date Resolved Date Chronic diastolic congestive heart failure 09/29/2023 07/10/2024 Encounters Date Type Department Care Team Description 05/19/2025 10:30 AM EDT Infusion [facility] Infusion [facility] [address] [place] [address] Issac Dey MD Osteoporosis (Primary Dx) 05/09/2025 Orders Only Virtual Department [address] [place] [address] Issac Dey MD Osteoporosis, unspecified osteoporosis type, unspecified pathological fracture presence (Primary Dx) 05/06/2025 Orders Only [facility] Internal Medicine [address] [place] [address] Klever Ramon MD 03/24/2025 11:30 AM EDT Office Visit [facility] Internal Medicine [address] [place] [address] Mike Martin MD Essential hypertension (Primary Dx); Chronic obstructive pulmonary disease, unspecified COPD type; Coronary artery disease involving [place] coronary artery of [place] heart without angina pectoris; Pure hypercholesterolemia; Impaired fasting glucose; Age related osteoporosis, unspecified pathological fracture presence 03/13/2025 Telephone [facility] Neurology [address] [place] [address] Katharine Deal MA 03/12/2025 Orders Only [facility] Internal Medicine [address] [place] [address] ProviderKlever MD 02/27/2025 1:00 PM EDT Office Visit [facility] Neurology [address] [place] [address] Nam Wilburn MD Intractable migraine without aura and without status migrainosus (Primary Dx); Cervicogenic headache; Taste sense altered from Last 3 Months Immunizations Immunization Administration Dates Next Due COVID-19 (Pre-06/19) Pfizer Vaccine, mRNA, PF 11/30/2020,11/08/2020 COVID-19 Moderna Spikevax Vaccine 12+ 11/15/2023 Hepatitis B Adult 08/28/1986 INFLUENZA, SPLIT VIRUS, TRIVALENT PF 05/05/2021 INFLUENZA, SPLIT VIRUS, TRIV ALENT W/ PRESERVATIVE IM 05/11/2015,06/13/2012 Influenza High-Dose Quadriva lent Preservative Free IM 04/23/2021 Influenza High-Dose Trivalen t Preservative Free IM 04/30/2024,05/21/2019,05/08/2019,05/18 Influenza Quadrivalent Adjuv anted Preservative Free IM 04/28/2023,05/06/2022 Influenza trivalent preserva tive free intradermal 05/06/2013 Influenza, Unspecified Formulation 05/26/2020,,05/10/2018 Pneumococcal conjugate PCV13 05/07/2015 Pneumococcal conjugate PCV20 03/12/2025 Pneumococcal polysaccharide PPSV23 06/17/2014, RSV Vaccine (monovalent, adjuvanted) 04/28/2023 Td (adult) 5 Lf Tetanus Toxo id, PF, Adsorbed 04/28/2006 Tdap 03/12/2025,01/05/2012 Zoster live 01/27/2012 Zoster recombinant 11/27/2018,09/24/2018 Family History Medical History Relation Comments Diabetes Brother 1 Hypertension Brother 1 Prostate cancer Brother 1 COPD Brother 2 Pneumonia Brother 2 Cancer Father Heart attack Father Heart disease Father Hypertension Father Heart attack Mother Heart disease Mother Stroke Mother Relation Status Comments Brother 1 Alive Brother 2 Alive Father Mother (Age 81) Social History Tobacco Use Types Packs/Day Years Used Date Smoking Tobacco: Never Smokeless Tobacco: Never Tobacco Cessation:Counseling Given: Not Answered Alcohol Use Standard Drinks/Week Comments Yes 0 [...] Orientation Asexual 01/06/2022 10 :29 PM EDT Last Filed Vital Signs Vital Sign Reading Time Taken Comments Blood Pressure 128/70 05/19/2025 10:24 AM EDT Pulse 55 05/19/2025 10:24 AM EDT Temperature 36.1 C (97 F) 05/19/2025 10:24 AM EDT Respiratory Rate 18 05/19/2025 10:24 AM EDT Oxygen Saturation 98% 05/19/2025 10:24 AM EDT Inhaled Oxygen Concentration - - Weight 57.3 kg (126 lb 6.4 oz) 03/24/2025 11:29 AM EDT Height 155.8 cm (5' 1.34 ) 03/24/2025 11:29 AM E DT Body Mass Index 23.62 03/24/2025 11:29 AM EDT Plan of Treatment Upcoming Encounters Date Type Department Care Team (Late st Contact Info) Description 07/11/2025 11:30 AM EST Office Visit [facility] Internal Medicine [address] [place] [address] Mike Martin MD [address] [place] [address] 07/16/2025 10:00 AM EST Office Visit [facility] [address], [address] [place] [address] Mark Anthony Saab MD [address] [place] [address], [address] [address] 09/01/2025 1:00 PM EST Office Visit [facility] Neurology [address] [place] [address] Nam Wilburn MD [address] [place] [address], [address] [place] [address] 11/26/2025 10:00 AM EDT Office Visit [facility] Internal Medicine [address] [place] [address] Mike Martin MD [address] [place] [address] [email or web address] Health Maintenance Due Date Last Done Comments LIPID PANEL 10/18/2025 10/18/2024, 02/2024, 06/19/2023, Additional history exists BLOOD PRESSURE 11/16/2025 05/19/2025 DEPRESSION SCREENING 11/22/2025 11/22/2024 Adult Td,Tdap Booster 03/12/2035 03/12/2025 , 01/05/2012, 04/28/2006 ZOSTER VACCINES Completed 11/27/2018, 08/29, 01/27/2012 HEPATITIS C SCREENING Completed 06/26/2019 , 06/26/2019, 06/26/2019 RSV VACCINE Completed 04/28/2023 OSTEOPOROSIS SCREENING INITIAL (ONE-TIME) Completed 02/13/2024, 02/14/2022, 12/29/2015 COVID-19 VACCINE Completed 11/02/2024, 10/2023, 11/15/2023, Additional history exists PNEUMOCOCCAL VACCINES (50+ years) Completed 03/12/2025, 05/07/2015, 06/17/2014, Additional history exists SMOKING STATUS SCREENING (Once After 26 Yrs) Completed 03/24/2025 INFLUENZA VACCINE Completed 04/23/2025, , 04/28/2023, Additional history exists HEPATITIS A VACCINES Aged Out No long er eligible based on patient's age to complete this topic HIB VACCINES Aged Out No longer eligi ble based on patient's age to complete this topic MENINGOCOCCAL VACCINES (ACWY) Aged Out No longer eligible based on patient's age to complete this topic MENINGOCOCCAL VACCINES (B) Aged Out N o longer eligible based on patient's age to complete this topic Medical Devices Not on file Procedures Procedure Name Priority Date/Time Associated Diagnosis Comments OUTSIDE LAB Routine 05/01/2025 11:41 AM EDT LIPID PANEL Routine 10/18/2024 8:37 AM EST Pure hypercholesterolemia HM DEXA SCAN Routine 02/13/2024 1:01 PM EDT HEPATITIS C ANTIBODY, QUALITATIVE Routine 06/26/2019 from Last 3 Months or Most Recently Relevant to Health Maintenance Results * Outside Lab (05/01/2025 11:41 AM EDT) Klever Ramon MD LAB BLOOD ORDERABLES Winnie l Result * (ABNORMAL) Lipid panel (10/18/2024 8:37 AM EST) HDL 84 mg/dL [facility] Comment: Interpretation <40 mg/dL: Low HDL cholesterol (major risk factor for CHD) Greater than or equal to 60 mg/dL: High HDL cholesterol ( negative risk factor for CHD) HDL - cholesterol is affected by a number of factors, e.g. smoking, excerise, hormones, sex and age. CHOLESTEROL 158 0 - 240 mg/dL [facility] TRIGLYCERIDES 79 30 - 160 mg/dL [facility] LDL 58 50 - 129 mg/dL [facility] Comment: LDL levels in terms of risk for coronary heart disease: <100 mg/dL: Optimal 100-129 mg/dL: Near or above optimal 130-159 mg/dL: Borderline high 160-189 mg/dL: High >190 mg/dL: Very High CARDIAC RISK RATIO 1.9(L) 3.3 - 4.4 C [facility] Blood 10/18/2024 8:37 AM EST 10/18/2024 8:56 AM EST Mike Martin MD LAB BLOOD ORDERABLES Final Re sult [address] [address] * HM DEXA SCAN (02/13/2024 1:01 PM EDT) Issac Dey MD HEALTH MAINTENANCE Edited Re sult - Final * Hepatitis C antibody, qualitative (06/26/2019) Mike Martin MD LAB BLOOD ORDERABLES Final Re sult from Last 3 Months or Most Recently Relevant to Health Maintenance Insurance [employer] MEDEX SUPPLEMENT MEDICARE PART A & B [employer] MEDEX SUPPLEMENT MEDICARE PART A & B [employer] MEDEX SUPPLEMENT MEDICARE PART A & B [employer] MEDEX SUPPLEMENT MEDICARE PART A & B [employer] MEDEX SUPPLEMENT MEDICARE PART A & B [employer] MEDEX SUPPLEMENT MEDICARE PART A & B MEDEX SUPPLEMENT MEDICARE PART A & B [employer] MEDEX SUPPLEMENT MEDICARE PART A & B [employer] MEDEX SUPPLEMENT MEDICARE PART A & B Care Teams Carpet Technician Relationship Specialty Start Date End Date Mike Martin MD [address] [place] [address] [email or web address] PCP - General Internal Medicine 06/19/17 Maksim Summers MD [address] [place] [phone] [email or web address] [email or web address] 01/06/22 Issac Dey MD [address] [place] [address] [email or web address] Endocrinology 10/03/22 Mike Martin MD [address] [place] [phone] Insurance Assigned Provider 12/02/23 Simone Shi MD [address] [place] [phone] Orthopedic Surgery 05/22/23 Additional Source Comments The information contained in this document represents components of the legal health record. It is not the complete legal health record.[facility]
--- OUTSIDE RECORDS SUMMARY | 2025-05-20 12:05 | XMS_ITS | Encounter Summary ---
Author Organization [facility] Address [address] [place] [address] Phone Care Team Providers Care Screen Printer Helper Name Role Phone Mike Martin MD Unavailable [phone] Mike Martin MD Primary Care Provider [phone] Simone Shi MD Unavailable [phone] Maksim Summers MD Unavailable [phone] Issac Dey MD Unavailable [phone] Mike Martin MD Unavailable [phone] Simone Shi MD Unavailable [phone] Encounter Details Date Type Department Care Team (Late st Contact Info) Description 05/05/2022 Procedure Pass Echo Lab [address] [place] [address] Social History Tobacco Use Types Packs/Day Years Used Date Smoking Tobacco: Never Smokeless Tobacco: Never Alcohol Use Standard Drinks/Week Comments Not Currently 0 (1 standard drink = 0.6 oz pur e alcohol) none for the past 2 years Child or Family Care Answer Date Record ed Do you have problems with on e of the following making it difficult for you to work, study, or receive health care? No 02/02/2021 Education Answer Date Recorded Are you interested in help w ith more adult education (for example, completing high school, GED, job training, learning the [place] language, technical skills, or developing parenting skills)? [...] Description 07/11/2025 11:30 AM EST Office Visit [facility] Internal Medicine [address] [place] [address] Mike Martin MD [address] [place] [address] 07/16/2025 10:00 AM EST Office Visit [facility] [address] [place] [address] [address]rd Floor, [address] [place], [place] [phone] Mark Anthony Saab MD [address] [place] [facility], [address] [place] [address] [email or web address] 09/01/2025 1:00 PM EST Office Visit [facility] Neurology [address] [place] [address] Nam Wilburn MD [address] [facility], 2nd [place] [address] [email or web address] 11/26/2025 10:00 AM EDT Office Visit [facility] Internal Medicine [address] [place], [place] [phone] Mike Martin MD [address] [place], [place] [phone] [email or web address] documented as of this encounter Visit Diagnoses Not on filedocumented in this encounter Additional Health Concerns Infection Onset Date Last Indicated Resolved Time CoV-Presumed 08/11/2022 08/11/2022 09/01/2022 1:21 AM EST CoV-Risk 05/13/2024 05/13/2024 05/24/2024 1:22 AM EDT CoV-Risk 11/22/2024 11/22/2024 12/03/2024 1:23 AM EDT Assessment Noted Time PHQ-2 Depression Total Score: 0 02/09/20 9:58 AM EDT documented as of this encounter Care Teams Screen Printer Helper Relationship Specialty Start Date End Date Mike Martin MD [address] [place], [place] [phone] PCP - General Internal Medicine 06/19/17 Mike Martin MD [address] [place] [address] [email or web address] Historical LMR Provider 06/18/17 10/02/22 Simone Shi MD [address] [place] [phone] Orthopedic Surgery 01/31/20 05/21/23 Maksim Summers MD [address] [place] [address] [email or web address] Gastroenterology 01/06/22 Issac Dey MD [address] [place] [address] [email or web address] Endocrinology 10/03/22 Mike Martin MD [address] [place] [address] [email or web address] Insurance Assigned Provider 12/02/23 Simone Shi MD [address] [place] [address] [phone] Orthopedic Surgery 05/22/23 documented as of this encounter Additional Source Comments The information contained in this document represents components of the legal health record. It is not the complete legal health record.[facility]
--- OUTSIDE RECORDS SUMMARY | 2025-05-20 12:05 | XMS_ITS | Encounter Summary ---
Author Organization [facility] Address [address] [place] [address] Phone Care Team Providers Care Supervisor Sheet Manufacturing Name Role Phone Mike Martin MD Primary Care Provider Maksim Summers MD Unavailable Issac Dey MD Unavailable [phone] Mike Martin MD Unavailable [phone] Simone Shi MD Unavailable Encounter Details Date Type Department Care Team (Late st Contact Info) Description 10/18/2024 Transcribe Orders [facility] [address] [place] [address] [facility] [address] [address] Social History Tobacco Use Types Packs/Day Years [...] ecorded Denied Basic Needs Not on file 09/29/2023 In the past 12 months have y ou been in a relationship with a person who hurts, threatens, or tries to control you? No 09/29/2023 Worried food would run out Not on file 09/29 In the past 12 months have y ou been in a relationship with a person who hurts, threatens, or tries to control you? No 09/29/2023 Comments No Sex and Gender Information Value [...] Description 07/11/2025 11:30 AM EST Office Visit [facility] Internal Medicine [address] [place] [address] Mike Martin MD [address] [place] [address] 07/16/2025 10:00 AM EST Office Visit [facility] [address] [place] [address] 3rd Floor, [address] [place] [address] Mark Anthony Saab MD [address] [place] [address], [address] [address] 09/01/2025 1:00 PM EST Office Visit [facility] Neurology [address] [place] [address] Nam Wilburn MD [address] [place] [address], 2nd [place] [address] 11/26/2025 10:00 AM EDT Office Visit [facility] Internal Medicine [address] [place] [address] Mike Martin MD [address] [place] [address] documented as of this encounter Visit Diagnoses Not on filedocumented in this encounter Additional Health Concerns Infection Onset Date Last Indicated Resolved Time CoV-Risk 11/22/2024 11/22/2024 12/03/2024 1:23 AM EDT Assessment Noted Time PHQ-2 Depression Total Score: 0 09/29/19 9:35 AM EST documented as of this encounter Care Teams Supervisor Sheet Manufacturing Relationship Specialty Start Date End Date Mike Martin MD [address] [place] [address] [email or web address] PCP - General Internal Medicine 06/19/17 Maksim Summers MD [address] [place] [phone] Gastroenterology 01/06/22 Issac Dey MD [address] [place] [phone] Endocrinology 10/03/22 Mike Martin MD [address] [place] [address] [email or web address] Insurance Assigned Provider 12/02/23 Simone Shi MD [address] [place] [phone] Orthopedic Surgery 05/22/23 documented as of this encounter Additional Source Comments The information contained in this document represents components of the legal health record. It is not the complete legal health record.[facility]
== END 2025-05-20 10:42 | disposition home or self-care (01) ==
LOC: HO.HPS 10:00
PROVIDERS: PCP Internal Medicine; Visit Provider Hospitalist
DX: J41.0 Simple chronic bronchitis (principal); G47.33 Obstructive sleep apnea (adult) (pediatric); J98.11 Atelectasis
CPT/HCPCS: 99214; G2211

== ENCOUNTER → 2025-05-20 10:00 | Outpatient (BNVA) | payer MEDICARE, SELFPAY | PROVIDERS: PCP Internal Medicine; Visit Provider Hospitalist | DX: J41.0 Simple chronic bronchitis (principal); J98.11 Atelectasis; G47.33 Obstructive sleep apnea (adult) (pediatric) | CPT/HCPCS: 99212 ==